=== PATIENT | female | born 1945 | race Caucasian/White ===

== ENCOUNTER 2017-12-30 20:21 | Inpatient (IN) | payer MEDICARE ==
[~2017-12-30] VITALS: Ht 162.6 cm; Wt 44.0 kg
[~2017-12-30 20:21] MED LIST: ALBUTEROL; ALBUTEROL25 GM INH; CALCIUM WITH VITAMIN D PO; FLEXERIL10 MG PO; GABAPENTIN100 MG PO; GERITOL; GERITOL TONIC; IRON PO; LEVAQUIN500 MG PO; MULTIVITAMINS1 EAC7 PO; NEXIUM; NEXIUM40 MG PO; NORCO 10-325 T1 EACH PO; ONE DAILY MULT1 EAC1 PO; PROAIR HFA INH8.5 GM INH; SYMBICORT; SYMBICORT 16010.2 GM INH; [UNRECOGNIZED DRUG - OTHER]
[2017-12-30] MEDS ORDERED: SODIUM CHLORIDE 0.9% 1000ML 1,000 ML IV ONE ×2 (20:45→21:15)
[2017-12-30] MEDS ORDERED: ACETAMINOPHEN 325 MG TAB PO ONE (20:45)
[2017-12-30] MEDS ORDERED: CEFTRIAXONE SOD 1 GM VIAL IV ONE (20:45)
[2017-12-30 21:02] LABS: BASOPHILS # (AUTO) 0.1 (0.0-0.1); BASOPHILS % 0.3 % (0.0-1.0); HEMATOCRIT 38.1 % (34.2-44.1); HEMOGLOBIN 11.4 g/dL (12.0-16.0); LYMPHOCYTES # (AUTO) 2.1 (1.0-3.2); LYMPHOCYTES % 9.7 % (18.0-39.1); MEAN CORPUSCULAR HEMOGLOBIN 25.3 pg (28-32); MEAN CORPUSCULAR HGB CONC 29.9 g/dL (31-35); MEAN CORPUSCULAR VOLUME 84.7 fL (81-99); MONOCYTES # (AUTO) 1.2 (0.2-0.8); MONOCYTES % 5.8 % (4.4-11.3); NEUTROPHILS # (AUTO) 17.5 (2.1-6.9); NEUTROPHILS % 83.2 % (38.7-80.0); PLATELET COUNT 350 x10e3/uL (140-360); RED CELL DISTRIBUTION WIDTH 18.9 % (11.7-14.4)
[2017-12-30 21:18] LABS: ALBUMIN 2.7 g/dL (3.5-5.0); ALBUMIN/GLOBULIN RATIO 0.6 (0.8-2.0); ANION GAP 15.1 mmol/L (8-16); CALCIUM 9.1 mg/dL (8.4-10.2); CREATININE, SERUM 2.05 mg/dL (0.57-1.11); POTASSIUM 4.1 mmol/L (3.5-5.1)
[2017-12-30 21:25] LABS: CREATINE KINASE MB 5.6 ng/mL (0-5.0)
[2017-12-30 21:32] LABS: BILIRUBIN,URINE 2+ (NEGATIVE); COLOR,URINE STRAW (YELLOW); KETONES,URINE NEGATIVE (NEGATIVE); LEUKOCYTE ESTERASE ,URINE TRACE (NEGATIVE); NITRITE,URINE NEGATIVE (NEGATIVE); PROTEIN,URINE DIPSTICK TRACE (NEGATIVE); URINE UROBILINOGEN 8 mg/dL (0.2 - 1)
[2017-12-30 21:33] LABS: CLARITY,URINE SL CLOUDY (CLEAR)
[2017-12-30 21:52] LABS: BACTERIA,URINE MODERATE /HPF; EPITHELIAL CELLS,URINE FEW /LPF; WBC,URINE (MAN) 0-5 /HPF (0-5)
--- NOTE | 2017-12-30 22:26 | Diagnostic Imaging Report ---
EXAMINATION: Head CT without contrast. HISTORY:Dizziness, weakness and confusion. COMPARISON:None. TECHNIQUE: Multidetector axial images were obtained from the foramen magnum to the vertex without contrast. The images were reconstructed using brain and bone algorithms. Thin section brain images were reformatted into coronal and sagittal planes. Intravenous contrast: None IMAGE QUALITY: Acceptable. FINDINGS: Skull/scalp: No abnormality. Parenchyma: Nonspecific few, scattered supratentorial white matter hypodensity are likely related to small vessel ischemic changes. No acute hemorrhage, mass or acute major vascular territorial infarct. Arteries: No density suggestive of thrombosis. Dural sinuses: No abnormal density suggestive of thrombosis. Ventricles: No hydrocephalus or displacement. Extra-axial spaces: No abnormal density. Brain volume: Normal for age. Craniocervical junction: No mass, Chiari malformation, or basilar invagination. Sella: No mass. Paranasal/mastoid sinuses: Mild mucosal thickening in right sphenoid sinus with an air-fluid level. IMPRESSION: No acute intracranial abnormality. Mild supratentorial white matter microvascular ischemic changes. Signed by: Dr. Violeta Washington M.D. on 12/30/2017 10:23 PM
--- NOTE | 2017-12-30 22:42 | Diagnostic Imaging Report ---
CHEST SINGLE (PORTABLE), 12/30/2017 8:34 PM Technique: CHEST SINGLE (PORTABLE) Comparison: 02/22/2016 Clinical history: \S\CONFUSION, GENERALIZED WEAKNESS \S\[id number] \S\2200 \S\Y Findings: See Impression Impression: 1. Stable moderately enlarged cardiac silhouette. 2. Emphysema and central vascular congestion. 3. Right basilar atelectasis or pneumonia with small right effusion. Recommend short-term follow-up radiographs. 4. Unchanged chronic left humeral fracture deformity. Signed by: Dr Safia Schultz MD on 12/30/2017 10:39 PM
[2017-12-30] MEDS ORDERED: IBANDRONATE SO150 MG PO (22:58)
[2017-12-30] MEDS ORDERED: BENADRYL25 M1 PO (22:58)
[2017-12-30] MEDS ORDERED: ANORO ELLIPTA INH (22:58)
[2017-12-30] MEDS ORDERED: PAROXETINE HCL20 MG PO (22:58)
[2017-12-30] MEDS ORDERED: PROAIR HFA INH8.5 GM INH (22:58)
[2017-12-30] MEDS ORDERED: VIBERZI PO (22:58)
[2017-12-30] MEDS ORDERED: ASPIR-LOW81 MG PO (22:58)
[2017-12-30] MEDS ORDERED: GABAPENTIN300 MG PO (22:58)
[2017-12-30] MEDS ORDERED: PROPRANOLOL HCL40 MG PO (22:58)
[2017-12-30] MEDS ORDERED: CEFTRIAXONE SOD 1 GM VIAL IV SCH (23:00)
[2017-12-30] MEDS ORDERED: AZITHROMYCIN 500MG/NS 250 ML 250 ML IV ONE (23:00)
[2017-12-30] MEDS ORDERED: ACETAMINOPHEN 325 MG TAB PO PRN (23:00)
[2017-12-30] MEDS ORDERED: AZITHROMYCIN 500MG/SOD CHL 0.9% 250ML BAG IV SCH (23:00)
--- OUTSIDE RECORDS SUMMARY | 2017-12-30 23:04 | XMS REPORT ---
[facility] Address Unknown Phone Unavailable Care Team Providers Care [employer] [facility] Name Role Phone SILVINA CANTU Unavailable Unavailable Problems This patient has no known problems. Allergies, Adverse Reactions, Alerts This patient has no known allergies or adverse reactions. Medications This patient has no known medications. Results Test Description Test Time Test Comments Text Results Atomic Results Result Comments CT BRAIN WO [place] [address] Patient Name: GABBY COTA MR #: [id number] : 1945 Age/Sex: 72/F Req #: [id number] Adm Physician: Ordered by: SILVINA CANTU MD Report #: [id number] Location: ER Room/Bed: ___ Procedure: [id number] CT/CT BRAIN WO Exam Date: 12/30/17 Exam Time: 2200 REPORT STATUS: Signed EXAMINATION: Head CT without contrast. HISTORY:Dizziness, weakness and confusion. COMPARISON:None. TECHNIQUE: Multidetector axial images were obtained from the foramen magnum to the vertex without contrast. The images were reconstructed using brain and bone algorithms. Thin section brain images were reformatted into coronal and sagittal planes. Intravenous contrast: None IMAGE QUALITY: Acceptable. FINDINGS: Skull/scalp: No abnormality. Parenchyma: Nonspecific few, scattered supratentorial white matter hypodensity are likely related to small vessel ischemic changes. No acute hemorrhage, mass or acute major vascular territorial infarct. Arteries: No density suggestive of thrombosis. Dural sinuses: No abnormal density suggestive of thrombosis. Ventricles: No hydrocephalus or displacement. Extra-axial spaces: No abnormal density. Brain volume: Normal for age. Craniocervical junction: No mass, Chiari malformation, or basilar invagination. Sella: No mass. Paranasal/ mastoid sinuses: Mild mucosal thickening in right sphenoid sinus with an air- fluid level. IMPRESSION: No acute intracranial abnormality. Mild supratentorial white matter microvascular ischemic changes. Signed by: Dr. Violeta Washington M.D. on 12/30/2017 10:23 PM Dictated By: VIOLETA WASHINGTON MD 22 Transcribed By: JEANNIE on 12/30/172222 COPY TO: SILVINA CANTU MD CHEST SINGLE (PORTABLE) [place] [address] Patient Name: GABBY COTA MR #: [id number] : 1945 Age/Sex: 72/F Req #: [id number] Adm Physician: Ordered by: SILVINA CANTU MD Report #: [id number] Location: ER Room/Bed: ___ Procedure: [id number] DX/CHEST SINGLE (PORTABLE) Exam Date: 12/30/17 Exam Time: 2199 REPORT STATUS: Signed CHEST SINGLE (PORTABLE), 12/30/2017 8:34 PM Technique: CHEST SINGLE (PORTABLE) Comparison: 02/22/2016 Clinical history: S CONFUSION, GENERALIZED WEAKNESS S [id number] S 0 S Y Findings: See Impression Impression: 1. Stable moderately enlarged cardiac silhouette. 2. Emphysema and central vascular congestion. 3. Right basilar atelectasis or pneumonia with small right effusion. Recommend short-term follow-up radiographs. 4. Unchanged chronic left humeral fracture deformity. Signed by: Dr Danielle Schultz MD on 12/30/2017 10:39 PM Dictated By: DANIELLE SCHULTZ MD 38 Transcribed By: JEANNIE on 12/30 COPY TO: SILVINA CANTU MD
[2017-12-30] MEDS: SODIUM CHLORIDE 0.9% 1000ML 1,000 ML IV SCH (23:09)
[2017-12-31] VITALS (60 sets, daily range): BP systolic 72–145; BP diastolic 37–95
[2017-12-31] MEDS ORDERED: SODIUM CHLORIDE 0.9% 1000ML 1,000 ML IV ONE (00:45)
[2017-12-31] MEDS: IPRATROPIUM BROMIDE 0.02% 2.5 ML NEB NEB SCH ×4 (00:55→19:11)
[2017-12-31] MEDS: ALBUTEROL SULF 0.083% NEB SOLN 3 ML NEB NEB SCH ×7 (00:55→23:17)
[2017-12-31 02:19] LABS: ANION GAP 11.7 mmol/L (8-16); CALCIUM 7.5 mg/dL (8.4-10.2); CREATININE, SERUM 1.57 mg/dL (0.57-1.11); POTASSIUM 3.7 mmol/L (3.5-5.1)
[2017-12-31] MEDS ORDERED: NOREPINEPHRINE BITARTRATE/ NS 250 ML ONE (02:30)
[2017-12-31] MEDS: NOREPINEPHRINE BITARTRATE/ NS 250 ML IV SCH (02:40)
[2017-12-31 06:46] LABS: BASOPHILS % 0.2 % (0.0-1.0); EOSINOPHILS % 0.1 % (0.0-6.0); HEMATOCRIT 32.7 % (34.2-44.1); HEMOGLOBIN 9.7 g/dL (12.0-16.0); LYMPHOCYTES # (AUTO) 2.3 (1.0-3.2); LYMPHOCYTES % 13.7 % (18.0-39.1); MEAN CORPUSCULAR HEMOGLOBIN 25.5 pg (28-32); MEAN CORPUSCULAR HGB CONC 29.7 g/dL (31-35); MEAN CORPUSCULAR VOLUME 85.8 fL (81-99); MONOCYTES # (AUTO) 0.9 (0.2-0.8); MONOCYTES % 5.2 % (4.4-11.3); NEUTROPHILS # (AUTO) 13.1 (2.1-6.9); NEUTROPHILS % 79.7 % (38.7-80.0); PLATELET COUNT 280 x10e3/uL (140-360); RED BLOOD COUNT 3.81 x10e6/uL (3.6-5.1); RED CELL DISTRIBUTION WIDTH 19.1 % (11.7-14.4)
[2017-12-31] MEDS: SODIUM CHLORIDE 0.9% 1000ML 1,000 ML IV SCH (06:50)
[2017-12-31 07:00] LABS: ALBUMIN 2.8 g/dL (3.5-5.0); ALBUMIN/GLOBULIN RATIO 0.9 (0.8-2.0); ANION GAP 13.6 mmol/L (8-16); CALCIUM 7.7 mg/dL (8.4-10.2); CREATININE, SERUM 1.55 mg/dL (0.57-1.11); POTASSIUM 3.6 mmol/L (3.5-5.1)
[2017-12-31 07:02] LABS: CREATINE KINASE MB 3.2 ng/mL (0-5.0)
[2017-12-31] MEDS: ASPIRIN 81 MG CHEW TAB PO SCH (09:00)
[2017-12-31] MEDS: HEPARIN SOD (PORCINE) 5,000 UNIT/ML VIAL SC SCH ×2 (09:00→21:58)
[2017-12-31] MEDS: PAROXETINE HCL 20 MG TAB PO SCH (09:00)
[2017-12-31] MEDS: FAMOTIDINE 20 MG/2 ML VIAL IV SCH ×2 (09:53→18:45)
[2017-12-31] MEDS ORDERED: METHYLPREDNISOLONE SOD SUCC 40 MG/ML VIAL IV ONE (12:00)
[2017-12-31] MEDS ORDERED: ALBUTEROL SULFATE HFA 8GM INHALATION AEROSOL INH PRN (12:00)
--- NOTE | 2017-12-31 13:11 | Consultation ---
DATE OF CONSULTATION: December 31, 2017 PULMONARY/CRITICAL CARE CONSULTATION REFERRING PHYSICIAN: Dr. Mayur Demarco HISTORY OF PRESENT ILLNESS: The patient is a 70-year-old woman. She has a prior history of COPD. She had transient respiratory failure in February 2016 after an open reduction and internal fixation of the hip and hemiarthroplasty. Since that time, she has been Anoro at home with an occasional rescue inhaler. She has not required any further hospitalization for her breathing or corticosteroids. She came to the emergency department last night because she had more difficulty speaking and had some disorientation. Upon arrival to the emergency department, she was found to have a low blood pressure and an elevated temperature of 101.2. She was told by the emergency department that she had pneumonia. Her chest x-ray shows a right basilar infiltrate and a small right effusion. PAST SURGICAL HISTORY 1. Status post left hip replacement. 2. Status post right femoral neck fracture that required open reduction and internal fixation. PAST MEDICAL HISTORY 1. Patient and her daughter specifically deny any cardiac disease. 2. History of osteoporosis. 3. COPD. 4. Gastroesophageal reflux. SOCIAL HISTORY: The patient was a prior smoker and quit but then started again about 6 weeks ago. She is now determined to quit once again. She is not using any alcohol. FAMILY HISTORY: Noncontributory. ALLERGIES: THERE ARE NO KNOWN DRUG ALLERGIES. REVIEW OF SYSTEMS: The patient did not report any fever at home, but apparently she had a temperature in the emergency department. She does not complain of headache. She does not have neck pain. She has no chest pain. She does have some congestion and cough. She is not having any abdominal pain. She has no nausea or vomiting. She does have some intermittent leg swelling and uses compression stockings. PHYSICAL EXAMINATION VITAL SIGNS: Blood pressure is 145/71, although it was 72/47 in the emergency department. The O2 saturation is 94% on 3 L. HEENT: No facial swelling or erythema. The nasal mucosa is normal. The oropharynx is normal. LYMPHATIC: No submandibular, cervical or supraclavicular adenopathy. CARDIAC: Regular rate and rhythm with normal S1 and S2. There are no murmurs or rubs. LUNGS: Auscultation of the lungs reveals rhonchorous breath sounds bilaterally. There is a prolonged expiratory phase. There is no wheezing. ABDOMEN: Soft and nontender. There is no rebound or guarding. EXTREMITIES: 1 to 2+ leg edema. LABORATORY DATA: White blood cell count is 16.4, and hemoglobin is 9.7. The platelet count is 280. The creatinine is 1.55 and has decreased from 2.05 with fluids. The carbon dioxide is 18. IMPRESSION 1. Community-acquired pneumonia. 2. Chronic obstructive pulmonary disease with acute exacerbation. 3. Transient hypotension. 4. Acute kidney injury. 5. Metabolic acidosis. PLAN 1. Begin appropriate antibiotics for her community-acquired pneumonia. 2. Continue IV fluids. 3. Await culture results. 4. Continue Anoro and rescue inhaler as needed. 5. Solu-Medrol times 1 dose. Job#: [id number]
[2017-12-31] MEDS: SODIUM CHLORIDE 0.45% 1,000 ML IV SCH ×2 (13:18→21:58)
[2017-12-31] MEDS ORDERED: METHYLPREDNISOLONE SOD SUCC 40 MG/ML VIAL ONE (13:21)
[2017-12-31] MEDS: GABAPENTIN 300 MG CAP PO SCH ×2 (14:00→21:58)
[2017-12-31 15:17] LABS: CREATINE KINASE MB 2.4 ng/mL (0-5.0)
[2017-12-31] MEDS: CEFTRIAXONE SOD 1 GM VIAL IV SCH (21:58)
[2017-12-31] MEDS: AZITHROMYCIN 500MG/NS 250 ML 250 ML IV SCH (21:58)
[2018-01-01] VITALS (81 sets, daily range): BP systolic 52–163; BP diastolic 25–117
[2018-01-01] MEDS: NOREPINEPHRINE BITARTRATE/ NS 250 ML IV SCH (02:30)
[2018-01-01] MEDS: ALBUTEROL SULF 0.083% NEB SOLN 3 ML NEB NEB SCH ×6 (03:05→23:02)
[2018-01-01] MEDS: IPRATROPIUM BROMIDE 0.02% 2.5 ML NEB NEB SCH ×4 (03:05→19:05)
[2018-01-01] MEDS: GABAPENTIN 300 MG CAP PO SCH ×3 (05:00→21:55)
[2018-01-01 05:35] LABS: BASOPHILS % 0.2 % (0.0-1.0); HEMATOCRIT 32.7 % (34.2-44.1); HEMOGLOBIN 9.8 g/dL (12.0-16.0); LYMPHOCYTES # (AUTO) 0.6 (1.0-3.2); LYMPHOCYTES % 4.6 % (18.0-39.1); MEAN CORPUSCULAR HEMOGLOBIN 25.4 pg (28-32); MEAN CORPUSCULAR VOLUME 84.7 fL (81-99); MONOCYTES # (AUTO) 0.1 (0.2-0.8); MONOCYTES % 0.8 % (4.4-11.3); NEUTROPHILS # (AUTO) 12.3 (2.1-6.9); NEUTROPHILS % 93.3 % (38.7-80.0); PLATELET COUNT 307 x10e3/uL (140-360); RED BLOOD COUNT 3.86 x10e6/uL (3.6-5.1); RED CELL DISTRIBUTION WIDTH 19.1 % (11.7-14.4)
[2018-01-01 05:57] LABS: ALBUMIN 2.4 g/dL (3.5-5.0); ALBUMIN/GLOBULIN RATIO 0.6 (0.8-2.0); ANION GAP 12.8 mmol/L (8-16); CALCIUM 8.2 mg/dL (8.4-10.2); CREATININE, SERUM 1.08 mg/dL (0.57-1.11); POTASSIUM 3.8 mmol/L (3.5-5.1)
--- NOTE | 2018-01-01 06:10 | Diagnostic Imaging Report ---
CHEST SINGLE (PORTABLE), 01/01/2018 6:30 AM Technique: CHEST SINGLE (PORTABLE) Comparison: 12/30/2017 Clinical history: Pneumonia Findings: See Impression Impression: 1. Stable moderately enlarged cardiac silhouette. 2. Emphysema and central vascular congestion. 3. Increased small right pleural effusion with associated atelectasis/pneumonia. Mild left basilar atelectasis, aspiration or infection and pleural effusion. 4. Unchanged chronic left humeral fracture deformity/nonunion. Signed by: Dr Safia Schultz MD on 01/01/2018 6:07 AM
[2018-01-01] MEDS: SODIUM CHLORIDE 0.45% 1,000 ML IV SCH ×2 (08:00→16:00)
[2018-01-01] MEDS: CEFTRIAXONE SOD 1 GM VIAL IV SCH ×2 (09:00→20:35)
[2018-01-01] MEDS: HEPARIN SOD (PORCINE) 5,000 UNIT/ML VIAL SC SCH ×2 (09:00→20:35)
[2018-01-01] MEDS: FAMOTIDINE 20 MG/2 ML VIAL IV SCH ×2 (09:00→17:00)
[2018-01-01] MEDS: ASPIRIN 81 MG CHEW TAB PO SCH (09:00)
[2018-01-01] MEDS: PAROXETINE HCL 20 MG TAB PO SCH (09:00)
[2018-01-01] MEDS: ANORO ELLIPTA INH SCH (09:00)
[2018-01-01] MEDS ORDERED: ALBUTEROL SULFATE HFA 8GM INHALATION AEROSOL INH PRN (10:30)
[2018-01-01] MEDS ORDERED: SODIUM CHLORIDE 0.45% 1,000 ML ONE (15:28)
[2018-01-01] MEDS: AZITHROMYCIN 500MG/NS 250 ML 250 ML IV SCH (20:35)
[2018-01-02] VITALS (39 sets, daily range): BP systolic 102–163; BP diastolic 53–102
[2018-01-02] MEDS: IPRATROPIUM BROMIDE 0.02% 2.5 ML NEB NEB SCH ×6 (02:57→22:50)
[2018-01-02] MEDS: ALBUTEROL SULF 0.083% NEB SOLN 3 ML NEB NEB SCH ×6 (02:59→22:50)
[2018-01-02] MEDS: GABAPENTIN 300 MG CAP PO SCH (05:35)
[2018-01-02 06:29] LABS: BASOPHILS % 0.1 % (0.0-1.0); EOSINOPHILS % 0.1 % (0.0-6.0); HEMATOCRIT 31.8 % (34.2-44.1); HEMOGLOBIN 9.7 g/dL (12.0-16.0); LYMPHOCYTES # (AUTO) 1.5 (1.0-3.2); LYMPHOCYTES % 10.5 % (18.0-39.1); MEAN CORPUSCULAR HEMOGLOBIN 25.5 pg (28-32); MEAN CORPUSCULAR HGB CONC 30.5 g/dL (31-35); MEAN CORPUSCULAR VOLUME 83.5 fL (81-99); MONOCYTES # (AUTO) 0.6 (0.2-0.8); MONOCYTES % 4.3 % (4.4-11.3); NEUTROPHILS # (AUTO) 11.7 (2.1-6.9); NEUTROPHILS % 84.1 % (38.7-80.0); PLATELET COUNT 330 x10e3/uL (140-360); RED BLOOD COUNT 3.81 x10e6/uL (3.6-5.1)
[2018-01-02 06:48] LABS: ALANINE AMINOTRANSFERASE 10 IU/L (0-55); ALBUMIN 2.4 g/dL (3.5-5.0); ALBUMIN/GLOBULIN RATIO 0.6 (0.8-2.0); ALKALINE PHOSPHATASE 93 IU/L (40-150); ANION GAP 11.4 mmol/L (8-16); BLOOD UREA NITROGEN 25 mg/dL (7-26); BUN/CREATININE RATIO 27 (6-25); CALCIUM 8.6 mg/dL (8.4-10.2); CARBON DIOXIDE 24 mmol/L (22-29); CHLORIDE 106 mmol/L (98-107); CREATININE, SERUM 0.94 mg/dL (0.57-1.11); EST GLOMERULAR FILTRATION RATE 59 ML/MIN (60-); GLUCOSE 94 mg/dL (74-118); POTASSIUM 3.4 mmol/L (3.5-5.1); SODIUM 138 mmol/L (136-145)
[2018-01-02] MEDS: PAROXETINE HCL 20 MG TAB PO SCH (09:00)
[2018-01-02] MEDS: ASPIRIN 81 MG CHEW TAB PO SCH (09:00)
[2018-01-02] MEDS: ANORO ELLIPTA INH SCH (09:00)
[2018-01-02] MEDS: CEFTRIAXONE SOD 1 GM VIAL IV SCH ×2 (09:00→20:58)
[2018-01-02] MEDS: FAMOTIDINE 20 MG/2 ML VIAL IV SCH (09:00)
[2018-01-02] MEDS: HEPARIN SOD (PORCINE) 5,000 UNIT/ML VIAL SC SCH ×2 (09:00→20:34)
[2018-01-02] MEDS ORDERED: POTASSIUM CHLORIDE 20 MEQ TAB CR PO ONE (12:30)
[2018-01-02] MEDS: GABAPENTIN 100 MG CAP PO SCH ×2 (13:52→20:58)
[2018-01-02] MEDS ORDERED: GABAPENTIN 300 MG CAP PO SCH (14:00)
[2018-01-02] MEDS: FAMOTIDINE 20 MG TAB PO SCH (16:30)
[2018-01-02] MEDS ORDERED: METOPROLOL TARTRATE INJ 1 MG/ML VIAL ONE (18:28)
[2018-01-02] MEDS: METOPROLOL TARTRATE INJ 1 MG/ML VIAL IV PRN (18:32)
[2018-01-02] MEDS ORDERED: SODIUM CHLORIDE 0.9% 250ML 250 ML ONE (20:37)
[2018-01-02] MEDS: AZITHROMYCIN 500MG/NS 250 ML 250 ML IV SCH (20:58)
[2018-01-03] VITALS (8 sets, daily range): BP systolic 108–158; BP diastolic 54–88
[2018-01-03] MEDS: ALBUTEROL SULF 0.083% NEB SOLN 3 ML NEB NEB SCH ×6 (02:05→22:50)
--- NOTE | 2018-01-03 05:44 | Progress Note ---
DATE: January 03, 2018 TIME: 5:19 a.m. OVERNIGHT: Feeling a little better. REVIEW OF SYSTEMS: Denies any dizziness or chest pain. PHYSICAL EXAMINATION VITAL SIGNS: Reviewed. GENERAL: A tired-appearing woman resting in bed. HEENT: Anicteric. Pupils respond to light. No oral lesions. CARDIOVASCULAR: Normal S1 and S2. LUNGS: She has mildly coarse, but better aeration. ABDOMEN: Soft, nontender and nondistended. EXTREMITIES: No edema or calf tenderness. NEUROLOGICAL: She is alert and oriented times 3. She moves all extremities. SKIN: Dry. PSYCHIATRIC: Flat affect. LABS: Reviewed. MEDICATIONS: Reviewed. ASSESSMENT: A 72-year-old woman with: 1. Acute respiratory failure. 2. Septic shock. 3. Right lung pneumonia. 4. Acute kidney injury. 5. Urinary tract infection. 6. Somnolence secondary to medications. 7. Normocytic anemia. 8. Metabolic acidosis. 9. Underweight state: Body mass index 16.6. PLAN 1. Continue IV ceftriaxone and azithromycin. 2. Continue oxygen support. The patient is on 3 L nasal cannula. 3. All cultures remain negative. 4. Initiate physical therapy this morning. 5. The patient is more alert after . Reduce down Paxil and discontinue. 6. Acute kidney injury continues to resolve. 7. Metabolic acidosis continues to resolve. 8. Will obtain labs this morning. 9. Discharge planning. Job#: [id number] [place]
--- NOTE | 2018-01-03 05:48 | Progress Note ---
DATE: January 01, 2018 TIME: 7 a.m. OVERNIGHT: No events. REVIEW OF SYSTEMS: Denies any dizziness. PHYSICAL EXAM VITAL SIGNS: Reviewed. GENERAL: A tired-appearing man resting in bed. HEENT: Anicteric. CARDIOVASCULAR: Normal S1/S2. Without murmurs. LUNGS: Reduced breath sounds throughout. Mildly coarse. ABDOMEN: Soft, nontender, nondistended. EXTREMITIES: No edema or calf tenderness. NEUROLOGIC: Alert and appropriate. Moves all extremities. SKIN: Dry. PSYCHIATRIC: Flat affect. LABS: Reviewed. MEDICATIONS: Reviewed. ASSESSMENT AND PLAN: This is a 72-year-old woman. 1. Acute respiratory failure. Patient required bilevel positive airway pressure support. 2. Right lung pneumonia. Continue antibiotics. 3. Chronic obstructive pulmonary disease. Acute exacerbation of chronic obstructive pulmonary disease. Continue pulmonary support. 4. Acute kidney injury, proven. Continue follow. 5. Urinary tract infection. Continue antibiotics. 6. Septic shock. 7. Continue antibiotics and follow up cultures. 8. Normocytic anemia. Continue follow. 9. Prophylaxis. Will continue heparin and Pepcid. 10. CRITICAL CARE TIME: More than 35 minutes. Job#: [id number]
--- NOTE | 2018-01-03 05:54 | Progress Note ---
DATE: January 02, 2018 TIME: 7:30 a.m. OVERNIGHT: Feeling a little better. REVIEW OF SYSTEMS: Denies any dizziness. PHYSICAL EXAMINATION VITAL SIGNS: Reviewed. GENERAL: A tired-appearing woman, resting in bed. HEENT: Anicteric. CARDIOVASCULAR: Normal S1/S2. LUNGS: Mildly coarse breath sounds. ABDOMEN: Soft, nontender, nondistended. EXTREMITIES: No edema or calf tenderness. NEUROLOGIC: Alert and oriented times 2. Somewhat sleepy. SKIN: Dry. PSYCHIATRIC: Flat affect. LABS: Reviewed. MEDICATIONS: Reviewed. ASSESSMENT: This is a 72-year-old woman with 1. Acute respiratory failure. 2. Acute exacerbation of chronic obstructive pulmonary disease. 3. Acute kidney injury. 4. Right lung pneumonia. 5. Normocytic anemia. 6. Septic shock. PLAN 1. Continue O2 support. 2. Continue antibiotics. 3. All cultures remain negative. 4. Septic shock, resolved. 5. Acute kidney injury improving. 6. Patient is somnolent. Will reduce gabapentin and discontinue Paxil. 7. Continue Pepcid and heparin. 8. Disposition. Discharge patient out the ICU if neurologic status improves today. CRITICAL CARE TIME: More than 35 minutes. Job#: [id number] CQ
[2018-01-03] MEDS: GABAPENTIN 100 MG CAP PO SCH ×3 (06:02→21:21)
[2018-01-03 06:30] LABS: BASOPHILS % 0.2 % (0.0-1.0); EOSINOPHILS # (AUTO) 0.1 (0.0-0.4); EOSINOPHILS % 0.8 % (0.0-6.0); HEMATOCRIT 32.5 % (34.2-44.1); HEMOGLOBIN 9.7 g/dL (12.0-16.0); LYMPHOCYTES # (AUTO) 1.3 (1.0-3.2); LYMPHOCYTES % 13.8 % (18.0-39.1); MEAN CORPUSCULAR HEMOGLOBIN 25.3 pg (28-32); MEAN CORPUSCULAR HGB CONC 29.8 g/dL (31-35); MEAN CORPUSCULAR VOLUME 84.9 fL (81-99); MONOCYTES # (AUTO) 0.6 (0.2-0.8); MONOCYTES % 6.7 % (4.4-11.3); NEUTROPHILS # (AUTO) 7.2 (2.1-6.9); NEUTROPHILS % 77.6 % (38.7-80.0); PLATELET COUNT 333 x10e3/uL (140-360); RED BLOOD COUNT 3.83 x10e6/uL (3.6-5.1); RED CELL DISTRIBUTION WIDTH 19.1 % (11.7-14.4)
[2018-01-03 06:53] LABS: ANION GAP 11.9 mmol/L (8-16); BLOOD UREA NITROGEN 18 mg/dL (7-26); BUN/CREATININE RATIO 23 (6-25); CALCIUM 8.9 mg/dL (8.4-10.2); CARBON DIOXIDE 25 mmol/L (22-29); CHLORIDE 106 mmol/L (98-107); CREATININE, SERUM 0.79 mg/dL (0.57-1.11); EST GLOMERULAR FILTRATION RATE > 60 ML/MIN (60-); GLUCOSE 100 mg/dL (74-118); POTASSIUM 3.9 mmol/L (3.5-5.1); SODIUM 139 mmol/L (136-145)
[2018-01-03] MEDS: IPRATROPIUM BROMIDE 0.02% 2.5 ML NEB NEB SCH ×2 (07:00→12:06)
[2018-01-03 07:40] LABS: MAGNESIUM 1.3 MG/DL (1.3-2.1)
[2018-01-03] MEDS: ANORO ELLIPTA INH SCH (07:44)
[2018-01-03] MEDS: ASPIRIN 81 MG CHEW TAB PO SCH (08:04)
[2018-01-03] MEDS: FAMOTIDINE 20 MG TAB PO SCH ×2 (08:04→16:30)
[2018-01-03] MEDS: CEFTRIAXONE SOD 1 GM VIAL IV SCH ×2 (08:04→20:41)
[2018-01-03] MEDS: HEPARIN SOD (PORCINE) 5,000 UNIT/ML VIAL SC SCH ×2 (08:08→21:21)
[2018-01-03 12:32] LABS: ABG HCO3 27 mmol/L (23-28); ABG PCO2 48 mmHg (41-51); ABG PH 7.36 (7.31-7.41); ABG PO2 59 mmHg (80-105)
[2018-01-03] MEDS: AZITHROMYCIN 500MG/NS 250 ML 250 ML IV SCH (20:41)
[2018-01-03] MEDS ORDERED: QUETIAPINE FUMARATE 25 MG TAB PO SCH (21:00)
[2018-01-04] VITALS (11 sets, daily range): BP systolic 75–174; BP diastolic 44–95
[2018-01-04] MEDS: IPRATROPIUM BROMIDE 0.02% 2.5 ML NEB NEB SCH ×4 (03:42→19:30)
[2018-01-04] MEDS: ALBUTEROL SULF 0.083% NEB SOLN 3 ML NEB NEB SCH ×4 (03:42→19:30)
[2018-01-04] MEDS: GABAPENTIN 100 MG CAP PO SCH ×2 (05:05→15:26)
[2018-01-04] MEDS: ANORO ELLIPTA INH SCH (07:32)
[2018-01-04] MEDS: ASPIRIN 81 MG CHEW TAB PO SCH (08:09)
[2018-01-04] MEDS: FAMOTIDINE 20 MG TAB PO SCH ×2 (08:09→15:26)
[2018-01-04] MEDS: CEFTRIAXONE SOD 1 GM VIAL IV SCH (08:09)
[2018-01-04] MEDS: HEPARIN SOD (PORCINE) 5,000 UNIT/ML VIAL SC SCH (08:12)
[2018-01-04] MEDS: METOPROLOL TARTRATE INJ 1 MG/ML VIAL IV PRN ×2 (08:47→19:50)
--- NOTE | 2018-01-04 15:37 | Progress Note ---
DATE: PULMONARY/CRITICAL CARE PROGRESS NOTE The patient has had her Luna removed. She was assessed by physical therapy. She is weak at this time and having difficulty with her own activities of daily living. She has difficulty going to the bathroom. She has less cough and less congestion. She still has some dyspnea on exertion. PHYSICAL EXAMINATION VITAL SIGNS: Patient is afebrile. The vital signs are stable. HEENT: No facial swelling or erythema. The oropharynx is normal. LYMPHATIC: No submandibular, cervical or supraclavicular adenopathy. CARDIAC: Regular rate and rhythm with normal S1 and S2. There are no murmurs or rubs. LUNGS: Auscultation of the lungs reveals crackles and rhonchi at both bases. ABDOMEN: Soft and nontender. There is no rebound or guarding. EXTREMITIES: No leg edema or calf tenderness. There is no cyanosis or clubbing. SKIN: No rashes. NEUROLOGIC: No focal abnormalities. IMPRESSION 1. Resolving community-acquired pneumonia. 2. Chronic obstructive pulmonary disease. 3. Moderate protein-calorie malnutrition. 4. Deconditioning. PLAN 1. The patient can be switched to p.o. antibiotics. She should continue another week of p.o. antibiotics for the community-acquired pneumonia. 2. Continue bronchodilators. 3. Physical therapy. 4. Nutritional supplementation. Job#: [id number]
[2018-01-04] MEDS ORDERED: AZITHROMYCIN 250 MG TAB PO SCH (16:00)
[2018-01-04] MEDS ORDERED: CEFDINIR 300 MG CAP PO SCH (21:00)
--- NOTE | 2018-01-05 09:11 | Discharge Summary ---
PRINCIPAL DIAGNOSES 1. Acute respiratory failure. 2. Acute exacerbation of chronic obstructive pulmonary disease. 3. Acute kidney injury. 4. Right lung pneumonia. 5. Normocytic anemia. 6. Septic shock. SECONDARY DIAGNOSIS: Chronic obstructive pulmonary disease. CHIEF COMPLAINT: Shortness of breath. HISTORY OF PRESENT ILLNESS AND HOSPITAL COURSE: This is a 72-year-old woman who developed respiratory failure. She had acute exacerbation of COPD and acute kidney injury. She also had right lung pneumonia, all treated with antibiotics, oxygen support and BiPAP support. She had septic shock, which has been improving. She has been receiving physical therapy. She has periods of delirium, but she is improving and currently appropriate for discharge with followup. DISCHARGE MEDICATIONS: Per electronic medical record. FOLLOWUP: With primary care doctor in 1 week. CONDITION ON DISCHARGE: Stable and improving. DISCHARGE LOCATION: Skilled facility. REA HERNANDEZ MD Job#: [id number]
== END 2018-01-04 20:30 | DRG 871 ==
LOC: ER 20:21 → ERHOLD 23:00 → IMCU 23:36 → ERHOLD 23:36 → ICU 12-31 01:38 → IMCU 01-02 17:46
PROVIDERS: ADMIT Internal Medicine; ATTEND Internal Medicine
DX: A41.9 Sepsis, unspecified organism (principal); J96.00 Acute respiratory failure, unspecified whether with hypoxia or hypercapnia; R65.21 Severe sepsis with septic shock; E44.0 Moderate protein-calorie malnutrition; J18.9 Pneumonia, unspecified organism; E87.2 Acidosis; N39.0 Urinary tract infection, site not specified; J44.1 Chronic obstructive pulmonary disease with (acute) exacerbation; J44.0 Chronic obstructive pulmonary disease with (acute) lower respiratory infection; E86.0 Dehydration
CPT/HCPCS: 36415; 36600; 51700; 70450; 71045; 80048; 80053; 81001; 82550; 82553; 82805; 83605; 83735; 84484; 85025; 87040; 87086; 87400; 87449; 87899; 93005; 94640; 96360; 96361; 96366; 96374; 97139; 99284; J0456; J0696; J1644; J2920; J7030; J7050

== ENCOUNTER 2018-07-17 17:04 | Inpatient (IN) | payer MEDICARE ==
[~2018-07-17] VITALS: Ht 162.6 cm; Wt 49.9 kg
[~2018-07-17 17:04] MED LIST changes: +ANORO ELLIPTA INH; +ASPIR-LOW81 MG PO; +BENADRYL25 M1 PO; +GABAPENTIN300 MG PO; +IBANDRONATE SO150 MG PO; +PAROXETINE HCL20 MG PO; +PROPRANOLOL HCL40 MG PO; +VIBERZI PO
[2018-07-17] MEDS ORDERED: SODIUM CHLORIDE 0.9% 1000ML 1,000 ML IV STA (17:28)
[2018-07-17 18:23] LABS: BASOPHILS # (AUTO) 0.1 (0.0-0.1); BASOPHILS % 0.5 % (0.0-1.0); EOSINOPHILS # (AUTO) 0.2 (0.0-0.4); EOSINOPHILS % 2.1 % (0.0-6.0); HEMATOCRIT 34.6 % (34.2-44.1); LYMPHOCYTES % 19.7 % (18.0-39.1); MEAN CORPUSCULAR HEMOGLOBIN 28.7 pg (28-32); MEAN CORPUSCULAR HGB CONC 28.9 g/dL (31-35); MEAN CORPUSCULAR VOLUME 99.4 fL (81-99); MONOCYTES # (AUTO) 0.8 (0.2-0.8); NEUTROPHILS # (AUTO) 6.9 (2.1-6.9); NEUTROPHILS % 68.1 % (38.7-80.0); PLATELET COUNT 208 x10e3/uL (140-360); RED BLOOD COUNT 3.48 x10e6/uL (3.6-5.1); RED CELL DISTRIBUTION WIDTH 15.3 % (11.7-14.4)
[2018-07-17 18:33] LABS: INR 1.14; PROTHROMBIN TIME 13.7 seconds (11.9-14.5)
[2018-07-17 18:34] LABS: PARTIAL THROMBOPLASTIN TIME 31.2 seconds (23.8-35.5)
[2018-07-17 18:58] LABS: ALBUMIN/GLOBULIN RATIO 0.9 (0.8-2.0); ANION GAP 20.3 mmol/L (8-16); CALCIUM 7.7 mg/dL (8.4-10.2); CREATININE, SERUM 4.56 mg/dL (0.57-1.11); POTASSIUM 5.3 mmol/L (3.5-5.1)
--- NOTE | 2018-07-17 19:23 | Diagnostic Imaging Report ---
EXAMINATION: Head CT HISTORY: Disoriented, weakness COMPARISON: Head CT on 12/30/2017 TECHNIQUE: Multidetector axial images were obtained without contrast from the foramen magnum to the vertex . The images were reconstructed using brain and bone algorithms. Thin section brain images were reformatted into coronal and sagittal planes. Image quality: Motion/streaking artifact limits the evaluation of the skull base and posterior cranial fossa. Dose modulation, iterative reconstruction, and/or weight based adjustment of the mA/kV was utilized to reduce the radiation dose to as low as reasonably achievable. FINDINGS: Parenchyma: 1. Unchanged nonspecific few, scattered supratentorial white matter hypodensity are likely related to small vessel ischemic changes. 2. No mass or hemorrhage. No CT evidence of acute territorial vascular insult. Extra-axial spaces:No abnormal density. No extra-axial fluid collections Brain volume: Normal for age. Ventricles: No hydrocephalus or displacement. Arteries: No density suggestive of thrombus. Dural sinuses: No abnormal density. Extra-axial spaces: No abnormal density. Foramen magnum: No mass, Chiari malformation, or basilar invagination. Sella: No obvious mass. Paranasal/mastoid sinuses: Imaged portions unremarkable. Skull/Scalp: No lytic or blastic lesions. No fractures. IMPRESSION: 1. No acute intracranial abnormalities, unchanged from head CT on 12/30/2017. 2. Mild chronic microvascular ischemic changes. Signed by: Dr. Tamera Waller M.D. on 07/17/2018 7:20 PM
[2018-07-17 19:35] LABS: B-TYPE NATRIURETIC PEPTIDE2 1128.7 pg/mL (0-100)
--- NOTE | 2018-07-17 19:41 | Diagnostic Imaging Report ---
EXAM: CHEST SINGLE (PORTABLE), AP 1 view INDICATION: Disoriented, weakness COMPARISON: AP view of the chest January 01, 2018 FINDINGS: LINES/TUBES: None LUNGS: Emphysematous changes with scattered areas of scarring and subsegmental atelectasis. Likely mild interstitial edema. PLEURA: No effusions or pneumothorax. Interval resolution of prior pleural effusions. HEART AND MEDIASTINUM: Mild enlargement of the heart and central pulmonary vessels, stable from prior exam. BONES AND SOFT TISSUES: No acute findings. Chronic osteolysis of the left proximal humerus. IMPRESSION: Mild cardiomegaly and interstitial edema. Interval resolution of bilateral pleural effusions. Signed by: Dr. Anisa Moreira M.D. on 07/17/2018 7:37 PM
[2018-07-17] MEDS ORDERED: FUROSEMIDE INJ 10 MG/ML 4 ML VIAL IV ONE (20:00)
[2018-07-17] MEDS ORDERED: SODIUM BICARBONATE 8.4% INJ 50 ML SYR IV STA (20:00)
[2018-07-17] MEDS ORDERED: SODIUM CHLORIDE FLUSH 10 ML SYR INJ PRN (20:15)
[2018-07-17 21:45] LABS: AMPHETAMINES SCREEN,URINE NEGATIVE (NEGATIVE); BENZODIAZEPINES SCREEN,URINE NEGATIVE (NEGATIVE); PHENCYCLIDINE SCREEN,URINE NEGATIVE (NEGATIVE)
[2018-07-17 21:46] LABS: BACTERIA,URINE FEW /HPF; BILIRUBIN,URINE NEGATIVE (NEGATIVE); CLARITY,URINE CLOUDY (CLEAR); COLOR,URINE YELLOW (YELLOW); KETONES,URINE NEGATIVE (NEGATIVE); LEUKOCYTE ESTERASE ,URINE NEGATIVE (NEGATIVE); NITRITE,URINE NEGATIVE (NEGATIVE); PROTEIN,URINE DIPSTICK 1+ (NEGATIVE); RBC,URINE 0-5 /HPF (0-5); URINE UROBILINOGEN 0.2 mg/dL (0.2 - 1); WBC,URINE (MAN) 0-5 /HPF (0-5)
[2018-07-17 21:47] LABS: AMORPHOUS SEDIMENT,URINE MODERATE (FEW); EPITHELIAL CELLS,URINE FEW /LPF
[2018-07-17 23:21] VITALS: BP 140/94
[2018-07-17 23:29] VITALS: BP 140/94
[2018-07-18] VITALS (7 sets, daily range): BP systolic 92–140; BP diastolic 48–94
[2018-07-18 05:39] LABS: CREATINE KINASE MB 3.9 ng/mL (0-5.0)
[2018-07-18] MEDS ORDERED: FUROSEMIDE INJ 10 MG/ML 4 ML VIAL IV SCH (06:00)
[2018-07-18 06:24] LABS: BASOPHILS % 0.5 % (0.0-1.0); EOSINOPHILS # (AUTO) 0.1 (0.0-0.4); EOSINOPHILS % 1.4 % (0.0-6.0); HEMATOCRIT 29.2 % (34.2-44.1); HEMOGLOBIN 8.7 g/dL (12.0-16.0); LYMPHOCYTES # (AUTO) 1.7 (1.0-3.2); LYMPHOCYTES % 20.2 % (18.0-39.1); MEAN CORPUSCULAR HEMOGLOBIN 28.7 pg (28-32); MEAN CORPUSCULAR HGB CONC 29.8 g/dL (31-35); MEAN CORPUSCULAR VOLUME 96.4 fL (81-99); MONOCYTES # (AUTO) 0.7 (0.2-0.8); MONOCYTES % 7.9 % (4.4-11.3); NEUTROPHILS # (AUTO) 5.7 (2.1-6.9); NEUTROPHILS % 68.4 % (38.7-80.0); PLATELET COUNT 177 x10e3/uL (140-360); RED BLOOD COUNT 3.03 x10e6/uL (3.6-5.1); RED CELL DISTRIBUTION WIDTH 15.3 % (11.7-14.4)
[2018-07-18 06:57] LABS: ALBUMIN 2.5 g/dL (3.5-5.0); ALBUMIN/GLOBULIN RATIO 0.9 (0.8-2.0); ANION GAP 23.7 mmol/L (8-16); CREATININE, SERUM 4.82 mg/dL (0.57-1.11); POTASSIUM 4.7 mmol/L (3.5-5.1)
[2018-07-18 06:59] LABS: CALCIUM 6.9 mg/dL (8.4-10.2)
[2018-07-18] MEDS ORDERED: ALBUTEROL SULFATE HFA 8GM INHALATION AEROSOL INH PRN (07:30)
--- NOTE | 2018-07-18 08:00 | Diagnostic Imaging Report ---
EXAM: CHEST SINGLE (PORTABLE), AP 1 view INDICATION: Pulmonary edema COMPARISON: AP view of the chest July 17, 2018 FINDINGS: LINES/TUBES: None LUNGS: Interstitial edema and bibasilar atelectasis. PLEURA: No effusions or pneumothorax. HEART AND MEDIASTINUM: Stable cardiomegaly BONES AND SOFT TISSUES: No acute findings. Chronic deformity of the left humeral neck. IMPRESSION: No interval change. Signed by: Dr. Anisa Moreira M.D. on 07/18/2018 6:48 AM
[2018-07-18] MEDS: MIDODRINE HCL 5 MG TABLET PO SCH ×3 (08:15→17:00)
[2018-07-18] MEDS: SODIUM BICARBONATE 650 MG TAB PO SCH ×2 (08:15→17:00)
--- NOTE | 2018-07-18 08:17 | History and Physical ---
PRIMARY CARE PHYSICIAN: Dr. Mayur Demarco. CHIEF COMPLAINT: Confusion and reduced urination. HISTORY OF PRESENT ILLNESS: This is a 72-year-old woman with a history of acute kidney injury now developing confusion and reduced urine output, brought to the ER, as well found to have acute renal failure and hyperkalemia. She is also found to have pulmonary edema. She is admitted for further evaluation and management. PAST MEDICAL HISTORY: Acute respiratory failure, COPD, acute kidney injury, right lung pneumonia, normocytic anemia, septic shock, urinary tract infection, anemia, right hip fracture status post repair, osteoporosis, GERD. PAST SURGICAL HISTORY: Right hip fracture repair. ALLERGIES: PER ELECTRONIC MEDICAL RECORD. FAMILY AND SOCIAL HISTORY: No alcohol, illicit or cigarettes. MEDICATIONS: Per electronic medical record. REVIEW OF SYSTEMS: Unreliable at this time. PHYSICAL EXAMINATION VITAL SIGNS: Reviewed. GENERAL: A tired appearing woman, resting in bed. HEENT: Anicteric. CARDIOVASCULAR: Normal S1, S2. LUNGS: She has reduced breath sounds throughout. Muffled breath sounds. No wheezing. ABDOMEN: Soft, nontender, nondistended. EXTREMITIES: No edema or calf tenderness. NEUROLOGICAL: Awake but confused. Moves all extremities. SKIN: Dry. PSYCHIATRIC: Flat affect. LABS: Reviewed. MEDICATIONS: Reviewed. ASSESSMENT: This is a 72-year-old woman with 1. Acute kidney injury. 2. Hyperkalemia. 3. Hypocalcemia. 4. Normocytic anemia. 5. Acute exacerbation of congestive heart failure with pulmonary edema. 6. Pulmonary edema. 7. Chronic obstructive pulmonary disease. 8. Acute metabolic encephalopathy. PLAN 1. The patient received IV Lasix overnight. Renal function has worsened. Patient is also hypotensive and tachycardiac. The patient may need dialysis. We will consult nephrology. Continue bicarb. We will hold Lasix dose this morning. We will continue Luna. 2. Obtain 2D echocardiogram. 3. Start midodrine. 4. Obtain renal ultrasound. 5. We will not give fluids at this time as the patient does have interstitial edema and resolving bilateral pleural effusion. B-type natriuretic peptide is elevated above 1000. 6. Will discuss with nephrology for plan of care and will consult cardiology for assistance in management. 1. Prophylaxis: Use SCD. 2. Disposition: Monitor closely. Followup labs and reobtain basic metabolic panel later today and will discuss with consultants. Job#: [id number] GE
[2018-07-18] MEDS: ONDANSETRON HCL INJ 2 MG/ML VIAL IV PRN (08:25)
[2018-07-18] MEDS ORDERED: ASPIRIN 81 MG CHEW TAB PO SCH (09:00)
[2018-07-18] MEDS ORDERED: SEROQUEL25 MG PO (10:51)
[2018-07-18] MEDS: ALBUTEROL/IPRATROPIUM 3 ML NEB NEB SCH ×4 (11:15→23:45)
[2018-07-18] MEDS: GABAPENTIN 300 MG CAP PO SCH ×2 (13:05→21:48)
[2018-07-18 14:22] LABS: CREATINE KINASE MB 3.6 ng/mL (0-5.0)
[2018-07-18 14:41] LABS: ANION GAP 25.1 mmol/L (8-16); CREATININE, SERUM 4.98 mg/dL (0.57-1.11); POTASSIUM 5.1 mmol/L (3.5-5.1)
[2018-07-18] MEDS ORDERED: SODIUM BICARBONATE INJ 150 ML in DEXTROSE 5% 1,000 ML IV SCH (17:00)
--- NOTE | 2018-07-18 17:26 | Consultation ---
DATE OF CONSULTATION: July 18, 2018 CARDIOLOGY CONSULTATION REASON FOR CONSULTATION: Congestive heart failure. CHIEF COMPLAINT: I just don't feel very well. HISTORY OF PRESENT ILLNESS: A 72-year-old woman with history of chronic kidney disease presents with several days of confusion, reduced urine output and generalized feeling of unwell, as well as abdominal pain and abdominal distention. She denies any chest pain or shortness of breath or orthopnea or PND. Denies any previous history of heart problems. Denies any syncope. PAST MEDICAL HISTORY: 1. Shortness of breath. 2. COPD. 3. History of acute kidney injury. 4. History of pneumonia. 5. Anemia. 6. Right hip fracture status post repair. 7. Osteoporosis. 8. GERD. PAST SURGICAL HISTORY: Right hip fracture repair. FAMILY HISTORY: No family history of early CAD or sudden cardiac . SOCIAL HISTORY: No alcohol, smoking or illicit drug use. REVIEW OF SYSTEMS: Unable to obtain due to altered mental status. PHYSICAL EXAMINATION: VITALS: Reviewed. Temperature 99.2, pulse 105, respiratory rate 18, blood pressure 103/63, satting 96% on 2 liters nasal cannula. GENERAL: Elderly ill-appearing white female in no acute distress. CARDIOVASCULAR: Regular rate and rhythm. No murmurs, rubs or gallops. Palpable carotid pulses. Palpable radial pulses. Palpable pedal pulses. Bilateral lower extremity varicosities. No significant lower extremity edema. RESPIRATORY: Bibasilar crackles with decreased breath sounds at the bases. ABDOMEN: Soft, nontender, mildly distended. Suspect ascites by percussion. NEURO AND PSYCH: Patient is alert and oriented to person and place, not time. Lethargic affect. LABORATORY DATA: Reviewed. Notable for a creatinine of 4.98 with a BUN of 64. This is significantly elevated from baseline of near normal creatinine. BNP of 1128 with normal cardiac enzymes. Also noted to be anemic with hemoglobin of 8.7. IMAGING DATA: Reviewed. Chest x-ray shows pulmonary congestion, cardiomegaly. ELECTROCARDIOGRAM: Reviewed. TELEMETRY DATA: Reviewed. Shows sinus tachycardia, no ST-T changes concerning for acute ischemia. ASSESSMENT: 1. Congestive heart failure. 2. Acute renal failure. 3. Altered mental status. 4. Hypocalcemia. 5. Pulmonary edema. PLAN: Patient has been ruled out for acute VT with serial enzymes. Will get an echocardiogram to review her LV systolic function. Continue aspirin at this time. Will defer diuretics to Nephrology given the severe TED of unknown origin. Currently, although the chest x-ray shows mild congestion, patient is not in obvious cardiogenic shock or severe heart failure. Will await echocardiogram for further findings. Her volume overload may just be related to her worsening renal function. She is also relatively hypotensive with low-grade fevers. Will defer workup for possible sepsis to the primary team. Thank you for this consult. Will continue to follow. Job#: [id number] EV
[2018-07-18 17:34] LABS: ABG HCO3 16 mmol/L (23-28); ABG PCO2 49 mmHg (41-51); ABG PH 7.13 (7.31-7.41); ABG PO2 66 mmHg (80-105)
[2018-07-18 17:37] LABS: ACETAMINOPHEN < 3 ug/mL (10-30); SALICYLATE < 5.0 mg/dL (0-30)
[2018-07-18] MEDS ORDERED: LIDOCAINE HCL 1% LOCAL INJ 20 ML VIAL ONE (18:51)
--- NOTE | 2018-07-18 19:46 | Diagnostic Imaging Report ---
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 Additional Medications: Lidocaine 1% for local anesthesia Contrast used: None Estimated blood loss: Minimal Specimens: None Implants: 13 Hong [place]er, 15 cm triple-lumen hi flow central venous catheter DISCUSSION: Informed consent was obtained and documented in the medical record after discussion of risks and benefits. Preliminary sonographic evaluation of the right neck confirmed patency of the right internal jugular vein evidenced by compressibility. The right neck was prepped and draped in standard sterile fashion. 1% lidocaine was infiltrated into the skin and subcutaneous tissues for local anesthesia. Then under continuous sonographic guidance an 18-gauge singlewall needle was used to access the right internal jugular vein. A permanent sonographic image was stored in the medical record. A 0.0 3 5-in. J-wire was then advanced centrally through the needle to a depth of approximately 25 cm, with continuous cardiac rhythm monitoring. The needle was removed over the wire and the tract was dilated. Then a 13 [place]er, 15 cm triple-lumen central venous catheter was advanced over the wire to full depth. The wire was removed. Each lumen was tested and showed adequate bidirectional flow. All 3 lumens were then flushed with sterile saline. The catheter was secured to the skin with monofilament nylon suture and a sterile dressing was applied. The patient tolerated the procedure well without immediate complication. FINDINGS: Patent right internal jugular vein. IMPRESSION: Successful placement of a temporary hemodialysis catheter (13 [place]er, 15 cm triple-lumen) by a right internal jugular approach under sonographic guidance. Postprocedure chest radiograph will be obtained to confirm line positioning prior to use. Signed by: Dr. Kyaw Casarez M.D. on 07/18/2018 7:43 PM
--- NOTE | 2018-07-18 19:47 | Diagnostic Imaging Report ---
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 Additional Medications: Lidocaine 1% for local anesthesia Contrast used: None Estimated blood loss: Minimal Specimens: None Implants: 13 Montenegrin, 15 cm triple-lumen hi flow central venous catheter DISCUSSION: Informed consent was obtained and documented in the medical record after discussion of risks and benefits. Preliminary sonographic evaluation of the right neck confirmed patency of the right internal jugular vein evidenced by compressibility. The right neck was prepped and draped in standard sterile fashion. 1% lidocaine was infiltrated into the skin and subcutaneous tissues for local anesthesia. Then under continuous sonographic guidance an 18-gauge singlewall needle was used to access the right internal jugular vein. A permanent sonographic image was stored in the medical record. A 0.0 3 5-in. J-wire was then advanced centrally through the needle to a depth of approximately 25 cm, with continuous cardiac rhythm monitoring. The needle was removed over the wire and the tract was dilated. Then a 13 Montenegrin, 15 cm triple-lumen central venous catheter was advanced over the wire to full depth. The wire was removed. Each lumen was tested and showed adequate bidirectional flow. All 3 lumens were then flushed with sterile saline. The catheter was secured to the skin with monofilament nylon suture and a sterile dressing was applied. The patient tolerated the procedure well without immediate complication. FINDINGS: Patent right internal jugular vein. IMPRESSION: Successful placement of a temporary hemodialysis catheter (13 Montenegrin, 15 cm triple-lumen) by a right internal jugular approach under sonographic guidance. Postprocedure chest radiograph will be obtained to confirm line positioning prior to use. Signed by: Dr. Kyaw Casarez M.D. on 07/18/2018 7:43 PM
[2018-07-18] MEDS ORDERED: SODIUM CHLORIDE 0.9% 1000ML 2,000 ML ONE (20:23)
[2018-07-18 21:16] LABS: ANION GAP 25.1 mmol/L (8-16); CREATININE, SERUM 5.42 mg/dL (0.57-1.11); POTASSIUM 5.1 mmol/L (3.5-5.1)
[2018-07-18 21:18] LABS: CALCIUM 6.9 mg/dL (8.4-10.2)
[2018-07-18] MEDS ORDERED: HEPARIN SOD (PORCINE) 1000 UNIT/ML SDV ONE (21:34)
[2018-07-18] MEDS ORDERED: HEPARIN SOD (PORCINE) 1000 UNIT/ML SDV IV PRN (21:45)
--- NOTE | 2018-07-18 21:54 | Diagnostic Imaging Report ---
CHEST XRAY LINE PLACEMENT, 07/18/2018 7:20 PM Technique: CHEST XRAY LINE PLACEMENT Comparison: 07/18/2018 Clinical history: Central line placement Findings: See Impression. 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 Lucency of the left elbow may be artifactual from technique or osteopenia, incompletely assessed. Impression: 1. Lines/Tubes: Placement of right IJ approach central venous catheter at the cavoatrial junction. 2. Stable mildly enlarged cardiac silhouette. 3. Motion artifact. Low lung volumes with central vascular congestion and bibasilar opacities, favor atelectasis. 4. No pneumothorax. Signed by: Dr Safia Schultz MD on 07/18/2018 9:51 PM
[2018-07-19] VITALS (8 sets, daily range): BP systolic 118–150; BP diastolic 55–83
[2018-07-19] MEDS: ALBUTEROL/IPRATROPIUM 3 ML NEB NEB SCH ×5 (03:00→19:35)
[2018-07-19 04:59] LABS: BASOPHILS # (AUTO) 0.1 (0.0-0.1); BASOPHILS % 0.6 % (0.0-1.0); EOSINOPHILS % 0.1 % (0.0-6.0); HEMATOCRIT 28.5 % (34.2-44.1); HEMOGLOBIN 8.4 g/dL (12.0-16.0); LYMPHOCYTES # (AUTO) 0.8 (1.0-3.2); LYMPHOCYTES % 10.5 % (18.0-39.1); MEAN CORPUSCULAR HEMOGLOBIN 28.2 pg (28-32); MEAN CORPUSCULAR HGB CONC 29.5 g/dL (31-35); MEAN CORPUSCULAR VOLUME 95.6 fL (81-99); MONOCYTES # (AUTO) 0.4 (0.2-0.8); MONOCYTES % 4.9 % (4.4-11.3); NEUTROPHILS # (AUTO) 6.4 (2.1-6.9); NEUTROPHILS % 82.4 % (38.7-80.0); PLATELET COUNT 180 x10e3/uL (140-360); RED BLOOD COUNT 2.98 x10e6/uL (3.6-5.1); RED CELL DISTRIBUTION WIDTH 15.4 % (11.7-14.4)
[2018-07-19 05:22] LABS: ANION GAP 21.9 mmol/L (8-16); CALCIUM 7.4 mg/dL (8.4-10.2); CREATININE, SERUM 2.83 mg/dL (0.57-1.11); PHOSPHORUS 5.1 MG/DL (2.3-4.7); POTASSIUM 3.9 mmol/L (3.5-5.1)
[2018-07-19] MEDS: GABAPENTIN 300 MG CAP PO SCH ×3 (05:23→22:00)
[2018-07-19 05:50] LABS: MAGNESIUM 1.5 MG/DL (1.3-2.1)
[2018-07-19] MEDS: ANORO ELLIPTA INHALATION INH SCH (06:00)
[2018-07-19] MEDS: PANTOPRAZOLE 40 MG 10ML VIAL IV SCH (07:36)
[2018-07-19] MEDS: ONDANSETRON HCL INJ 2 MG/ML VIAL IV PRN ×3 (07:41→23:00)
[2018-07-19] MEDS: MIDODRINE HCL 5 MG TABLET PO SCH ×3 (08:00→16:00)
[2018-07-19] MEDS: SODIUM BICARBONATE 650 MG TAB PO SCH ×2 (09:00→16:13)
--- NOTE | 2018-07-19 12:39 | Progress Note ---
DATE: July 19, 2018 RENAL PROGRESS NOTE SUBJECTIVE: Followed for acute kidney injury on chronic kidney disease, stage 4 to stage 5. Patient is seen on dialysis treatment #2 today. Patient had dialysis treatment yesterday. No nausea. No vomiting. Shortness of breath is improved. Lower extremity edema is better also. OBJECTIVE VITAL SIGNS: Have been noted and are stable. Systolic BP is in the 130s mmHg. LUNGS: Clear to auscultation bilaterally. CARDIOVASCULAR: S1 and S2. No rubs. ABDOMEN: Soft and nontender. EXTREMITIES: No edema. LABORATORY DATA: Labs have been reviewed. IMPRESSION AND PLAN 1. Acute kidney injury on chronic kidney disease, stage 4 to stage 5. We will watch out dialysis tomorrow and if patient continues to have worsening kidney function, may need to stay on dialysis long-term. We will make further recommendations as more data becomes available. 2. Hypertension. Blood pressure is stable. Patient has been on midodrine, which is keeping her blood pressure up. 3. Fluid overload/congestive heart failure exacerbation. Ultrafiltration is being done with dialysis, which should help improve her overall volume status. Job#: [id number] INGRID
--- NOTE | 2018-07-19 12:44 | Progress Note ---
DATE: July 19, 2018 CARDIOLOGY PROGRESS NOTE SUBJECTIVE: Patient is awake, but does not respond or interact. She is receiving her second session of hemodialysis. OBJECTIVE VITAL SIGNS: Temperature 99.3 degrees, pulse 116, respiratory rate 20, blood pressure 125/55, oxygen saturation 94% on 2 liters nasal cannula. GENERAL: Elderly woman, no acute distress, not interactive. LUNGS: Decreased breath sounds at the bases, otherwise clear to auscultation. No wheezes or crackles. CARDIOVASCULAR: Tachycardic, but regular. No murmur. Normal S1 and S2. ABDOMEN: Soft, nontender. EXTREMITIES: No edema. CARDIAC MEDICATIONS: Midodrine 10 mg p.o. t.i.d. LABORATORY DATA: WBC 7.81, hemoglobin 8.4, hematocrit 28.5, platelets 180. Sodium 143, potassium 3.9, chloride 103, CO2 of 22, BUN 24, and creatinine 2.83. Telemetry, sinus tachycardia. IMPRESSION 1. Congestive heart failure. 2. Acute renal failure, initiate on hemodialysis. 3. Altered mental status. 4. Hypocalcemia. 5. Pulmonary edema. RECOMMENDATIONS: Patient ruled out for mild myocardial infarction with serial cardiac biomarkers. Echocardiogram has been ordered. Images will be reviewed once they are available. Continue aspirin. Given initiation on hemodialysis. we will defer volume management for nephrology. Further evaluation of altered mental status per primary service. Thank you for this consult. We will continue to follow. Job#: [id number] JIMMIE
[2018-07-19] MEDS: SODIUM CHLORIDE 0.9% 250ML IRRIG IR SCH ×3 (15:49→22:18)
[2018-07-19] MEDS: HYDROMORPHONE 1MG/1ML INJ IV PRN ×2 (16:36→20:35)
[2018-07-19 16:49] LABS: HEMATOCRIT 29.7 % (34.2-44.1)
--- NOTE | 2018-07-19 17:56 | Progress Note ---
DATE: July 19, 2018 TIME OF SERVICE: 9:15 a.m. SUBJECTIVE: Overnight the patient had coffee-ground emesis. Hemodialysis was also started. REVIEW OF SYSTEMS: Unobtainable. OBJECTIVE VITAL SIGNS: Reviewed. GENERAL APPEARANCE: A tired-appearing woman resting in the bed. HEENT: Anicteric. CARDIOVASCULAR: Normal S1 and S2. LUNGS: Reduced breath sounds throughout. Moderate breath sounds. ABDOMEN: Soft and nontender. Nondistended. EXTREMITIES: There is no edema. NEUROLOGIC: Confused. Moves extremities. SKIN: Dry. PSYCHIATRIC: Flat affect. LABS: Reviewed. MEDICATIONS: Reviewed. ASSESSMENT: A 72-year-old old woman. 1. Acute kidney injury/end-stage renal disease, started on hemodialysis yesterday. 2. Hyperkalemia. Started hemodialysis yesterday. 3. Hypocalcemia. 4. Normocytic anemia. 5. Acute exacerbation of congestive heart failure. 6. Pulmonary edema. 7. Chronic obstructive pulmonary disease. 8. Acute metabolic encephalopathy. 9. Coffee ground emesis. 10. Moderate anemia. PLAN: 1. Dialysis per nephrology. 2. Followup cardiology recommendations. 3. Monitor closely. 4. GI consultation. 5. Use IV proton pump inhibitor. 6. Continue with bicarb. 7. Blood pressure showed some improvement. Job#: [id number]
--- NOTE | 2018-07-19 21:22 | Diagnostic Imaging Report ---
Exam: Abdominal film Clinical History: Abdominal pain Comparison: None. DISCUSSION: Frontal view of the abdomen shows a nonobstructive bowel gas pattern with mild amount of retained stool. There are no dilated, air-filled loops of bowel. There are no abnormal calcifications. Right hemiarthroplasty. Left femoral neck screw with lateral plate construct partially visualized. IMPRESSION: 1. Nonobstructive bowel gas pattern. Signed by: Dr. Michael Martinez M.D. on 07/19/2018 7:46 PM
[2018-07-19] MEDS: LEVALBUTEROL HCL SOLN NEBU 0.63 MG/3 ML NEB INH SCH (23:05)
[2018-07-20] VITALS (9 sets, daily range): BP systolic 125–170; BP diastolic 65–94
[2018-07-20] MEDS: SODIUM CHLORIDE 0.9% 250ML IRRIG IR SCH ×4 (02:45→14:45)
[2018-07-20] MEDS: LEVALBUTEROL HCL SOLN NEBU 0.63 MG/3 ML NEB INH SCH ×6 (03:25→23:00)
[2018-07-20 05:14] LABS: BASOPHILS # (AUTO) 0.1 (0.0-0.1); BASOPHILS % 0.6 % (0.0-1.0); HEMATOCRIT 27.3 % (34.2-44.1); HEMOGLOBIN 8.3 g/dL (12.0-16.0); LYMPHOCYTES # (AUTO) 1.2 (1.0-3.2); MEAN CORPUSCULAR HEMOGLOBIN 28.6 pg (28-32); MEAN CORPUSCULAR HGB CONC 30.4 g/dL (31-35); MEAN CORPUSCULAR VOLUME 94.1 fL (81-99); MONOCYTES # (AUTO) 0.8 (0.2-0.8); MONOCYTES % 9.3 % (4.4-11.3); NEUTROPHILS # (AUTO) 6.3 (2.1-6.9); NEUTROPHILS % 75.6 % (38.7-80.0); PLATELET COUNT 217 x10e3/uL (140-360); RED CELL DISTRIBUTION WIDTH 15.3 % (11.7-14.4)
[2018-07-20 05:37] LABS: ANION GAP 19.7 mmol/L (8-16); CREATININE, SERUM 2.92 mg/dL (0.57-1.11); MAGNESIUM 1.5 MG/DL (1.3-2.1); PHOSPHORUS 4.5 MG/DL (2.3-4.7); POTASSIUM 3.7 mmol/L (3.5-5.1)
[2018-07-20 05:41] LABS: CALCIUM 8.8 mg/dL (8.4-10.2)
[2018-07-20] MEDS: ANORO ELLIPTA INHALATION INH SCH (06:00)
[2018-07-20] MEDS: GABAPENTIN 300 MG CAP PO SCH ×2 (06:00→14:00)
[2018-07-20] MEDS: HYDROMORPHONE 1MG/1ML INJ IV PRN (06:10)
--- NOTE | 2018-07-20 07:22 | Consultation ---
DATE OF CONSULTATION: July 20, 2018 This is a 72-year-old lady who has a history of chronic renal disease apparently presented to the hospital because of abdominal pain, abdominal distention, nausea, vomiting, and some confusion. Her workup so far revealed that she is somewhat anemic on admission. She has abdominal x-rays that were done yesterday that shows nonobstructive pattern. She is not giving much of a history at this point. Other medical problems per records significant for history of COPD, history of renal disease, history of anemia, history of osteoporosis, history of reflux. ALLERGIES: NONE. SOCIAL HISTORY: No alcohol history. FAMILY HISTORY: Noncontributory. REVIEW OF SYSTEMS: Unobtainable. PHYSICAL EXAMINATION GENERAL: Awake and lying in bed, and appears to be not in acute distress at this point. VITAL SIGNS: Afebrile currently. HEENT: Normocephalic. Sclerae are anicteric. HEART: Regular. LUNGS: Clear. ABDOMEN: Soft. Distended and diffusely tender mostly in the epigastric area. There is no rebound or mass. EXTREMITIES: No clubbing. LAB VALUES: This morning the BUN is 19, creatinine of 2.92. The hemoglobin is 8.3. KUB is as mentioned before. IMPRESSION 1. Nausea and vomiting. 2. Abdomen somewhat distended. 3. Anemia. 4. End-stage renal disease. 5. Congestive heart failure. RECOMMENDATIONS: Keep n.p.o. for now. I would like to get a CT scan of the abdomen and pelvis without contrast. Follow clinically. Job#: [id number] RI cc:REA HERNANDEZ MD
[2018-07-20] MEDS: MIDODRINE HCL 5 MG TABLET PO SCH ×3 (08:00→16:00)
[2018-07-20] MEDS ORDERED: DIATRIZOATE MEGL/DIATRIZOA SOD 30 ML BTL PO ONE (08:30)
[2018-07-20] MEDS: ASPIRIN 81 MG ENTERIC COATED PO SCH ×2 (09:00→11:57)
[2018-07-20] MEDS: SODIUM BICARBONATE 650 MG TAB PO SCH ×3 (09:00→16:43)
--- NOTE | 2018-07-20 11:19 | Diagnostic Imaging Report ---
EXAM: CT Abdomen and Pelvis WITHOUT contrast INDICATION: Pain, rule out small bowel obstruction COMPARISON: 07/19/2018 radiograph TECHNIQUE: Abdomen and Pelvis was scanned utilizing a multidetector helical scanner without the use of IV contrast. Coronal and sagittal reformations were obtained. IV CONTRAST: None COMPLICATIONS: None RADIATION DOSE: Total DLP: 552 mGy*cm Estimated effective dose: (DLP x 0.015 x size factor) mSv CTDIvol has been reviewed. It is below the limits set by the Radiation Protocol Committee (RPC). Appropriate CT dose reduction techniques were utilized. FINDINGS: Abdomen: Lung Bases: Motion artifact limits. Small bilateral pleural effusions with bibasilar areas of consolidation, asymmetric to the left. Incompletely evaluated given lack of IV contrast. Solid Organs: Motion artifact limits evaluation. Tiny nonobstructing calculi present right kidney, largest approximately 3 mm. There is marked prominence of the common duct measuring a proximally 16 mm in diameter. Gallbladder is not distinctly distended. No inflammatory changes noted. No calcified common duct stone identified. Nonenhanced images of solid organs otherwise unremarkable. Upper GI Tract: Decompressed stomach limits adequate evaluation. No small bowel obstructive changes are identified. Vascularity: Moderate aortic vascular calcifications with no aneurysm. Lymph Nodes: Within limitations of motion and nonenhanced exam, no suspicious adenopathy. Other: Small fat-containing umbilical hernia. Pelvis: Limitations due to extensive beam hardening artifact from post surgical changes bilateral hips. Bladder: Decompressed by Luna catheter. Other: Uterus/adnexa poorly evaluated nonenhanced exam. There is a 16 mm cystic lesion axial image 54 superior to the uterus which could represent exophytic fibroid versus right adnexal cystic lesion. Colon: Moderate rectal stool with wall thickening of the rectum. Ill-defined soft tissue prominence in the presacral region. Significant colonic stool through remainder of colon. Appendix not dilated. Bones: Dynamic hip screw left hip and total hip arthroplasty changes on the right noted. Bones are demineralized. IMPRESSION: 1. No small bowel obstructive changes. 2. Significant colonic stool, particularly in the rectum. Wall thickening suggest stercoral colitis. 3. Marked prominence of the common duct with no distinct dilation of the gallbladder. No pancreatic ductal dilatation identified. While choledochal cyst could have this appearance, distal stone or mass not entirely excluded. Clinical and laboratory correlation for biliary obstruction recommended. Right upper quadrant ultrasound could be obtained for further evaluation. 4. Presacral soft tissue prominence, nonspecific. 5. Small pleural effusions with asymmetric to the left bibasilar areas of consolidation, incompletely evaluated. Findings could represent atelectasis or pneumonia. 6. 16 mm hypodense lesion superior to the uterus could represent exophytic fibroid or cystic adnexal lesion. This could be better evaluated with ultrasound. 7. Nonobstructing tiny right renal calculi. Signed by: Dr. Ned Fernandez MD on 07/20/2018 11:16 AM
[2018-07-20] MEDS: PANTOPRAZOLE 40 MG 10ML VIAL IV SCH (11:57)
--- NOTE | 2018-07-20 15:58 | Progress Note ---
DATE: July 20, 2018 RENAL PROGRESS NOTE SUBJECTIVE: Patient is followed for acute kidney injury on chronic kidney disease stage 4. Patient had dialysis treatment number 2 yesterday. Patient will be watched off dialysis today. She is nonoliguric. Currently no nausea, no vomiting, no shortness of breath. OBJECTIVE VITAL SIGNS: Have been noted and are stable. LUNGS: Clear to auscultation bilaterally. CARDIOVASCULAR: S1 and S2. No rub. ABDOMEN: Soft, nontender. EXTREMITIES: No edema. LABS: Have been reviewed IMPRESSION AND PLAN 1. Acute kidney injury on chronic kidney disease stage 4. Will watch off dialysis today, recheck labs in the morning and make further recommendations with regards to further dialysis treatments. 2. Hypertension. Blood pressure currently is stable. Continue to monitor. 3. Congestive heart failure exacerbation is improved. Will continue to monitor closely and make further recommendations. Thank you once again. Job#: [id number] EV
[2018-07-21] VITALS: BP 157/80
[2018-07-21] MEDS: HYDROMORPHONE 1MG/1ML INJ IV PRN (02:28)
[2018-07-21] MEDS: LEVALBUTEROL HCL SOLN NEBU 0.63 MG/3 ML NEB INH SCH ×7 (03:08→23:00)
[2018-07-21 04:00] VITALS: BP 153/77
[2018-07-21 05:27] LABS: ANION GAP 20.2 mmol/L (8-16); CALCIUM 9.2 mg/dL (8.4-10.2); CREATININE, SERUM 4.19 mg/dL (0.57-1.11); POTASSIUM 4.2 mmol/L (3.5-5.1)
[2018-07-21 05:56] LABS: BASOPHILS # (AUTO) 0.1 (0.0-0.1); BASOPHILS % 0.7 % (0.0-1.0); EOSINOPHILS % 0.4 % (0.0-6.0); HEMATOCRIT 29.2 % (34.2-44.1); HEMOGLOBIN 8.8 g/dL (12.0-16.0); LYMPHOCYTES # (AUTO) 1.3 (1.0-3.2); LYMPHOCYTES % 12.2 % (18.0-39.1); MEAN CORPUSCULAR HEMOGLOBIN 28.6 pg (28-32); MEAN CORPUSCULAR HGB CONC 30.1 g/dL (31-35); MEAN CORPUSCULAR VOLUME 94.8 fL (81-99); NEUTROPHILS # (AUTO) 8.2 (2.1-6.9); NEUTROPHILS % 77.5 % (38.7-80.0); PLATELET COUNT 208 x10e3/uL (140-360); RED BLOOD COUNT 3.08 x10e6/uL (3.6-5.1); RED CELL DISTRIBUTION WIDTH 15.1 % (11.7-14.4)
[2018-07-21] MEDS: ANORO ELLIPTA INHALATION INH SCH (06:00)
[2018-07-21 08:00] VITALS: BP 179/81
[2018-07-21] MEDS: MIDODRINE HCL 5 MG TABLET PO SCH ×2 (08:00→16:55)
[2018-07-21] MEDS: PANTOPRAZOLE 40 MG 10ML VIAL IV SCH (10:48)
[2018-07-21 12:00] VITALS: BP 153/81
--- NOTE | 2018-07-21 12:24 | Progress Note ---
DATE: July 21, 2018 RENAL PROGRESS NOTE SUBJECTIVE: Followed for acute kidney injury on chronic kidney disease stage 4 to 5, which is not recovered. Patient has essentially had ESRD now. Estimated GFR 10 mL per minute. Creatinine is 4.2. Patient is requiring continue dialysis for both fluid overload as well as for uremia. She is seen on the dialysis treatment, which she is tolerating. Temporary dialysis catheter is giving a little bit of trouble. Currently, no nausea, no vomiting, no shortness of breath. OBJECTIVE VITAL SIGNS: Have been noted. Blood pressure is 150s to 170s/70s, pulse is in 100s to one-teens, afebrile. LUNGS: Minimal rales at the bases. CARDIOVASCULAR: S1 and S2. No rub. ABDOMEN: Soft and nontender. EXTREMITIES: No edema. LABS: Potassium is 4.2, BUN 37, and creatinine is 4.2. Hemoglobin is 8.8. IMPRESSION AND PLAN 1. End-stage renal disease. Patient is at end-stage renal disease based on her estimated glomerular filtration rate and also we will need to continue outpatient dialysis. We will make arrangements for outpatient dialysis. We will also get interventional radiology to place a tunnel dialysis catheter. We will also ask Dr. Addison to see the patient for arteriovenous placement. Patient would not be a good candidate for peritoneal dialysis, especially since she is not strong enough and likely will require [facility] care. 2. Hypertension. Blood pressure is stable. We will cut back midodrine since the blood pressure is actually rising and make further recommendations. 3. Anemia of chronic disease, stable hemoglobin and hematocrit. We will continue to monitor closely. 4. Metabolic acidosis. Bicarb is also slightly better. We will watch closely and decrease the sodium bicarb oral and make further recommendations. Thank you once again. Job#: [id number] VAS
--- NOTE | 2018-07-21 13:06 | Progress Note ---
DATE: July 21, 2018 CARDIOLOGY PROGRESS NOTE SUBJECTIVE: Patient denies chest pain or shortness of breath. She was seen receiving hemodialysis. OBJECTIVE VITAL SIGNS: Temperature 97.7 degrees, pulse 103, respiratory rate 20, blood pressure 179/81, oxygen saturation 92% on 2 liters nasal cannula. GENERAL: Elderly woman, in no acute distress. More awake. LUNGS: Decreased breath sound at the bases, otherwise clear to auscultation. No wheezes or crackles. CARDIOVASCULAR: Tachycardic, but regular. No murmur. Normal S1 and S2. ABDOMEN: Soft, nontender. EXTREMITIES: No edema. CARDIAC MEDICATIONS 1. Aspirin 81 mg p.o. daily. 2. Midodrine 10 mg p.o. t.i.d. LABS: WBC 10.57, hemoglobin 8.8, hematocrit 29.2, and platelets 208. Sodium 141, potassium 4.2, chloride 102, CO2 of 23, BUN 37, and creatinine 4.19. TELEMETRY: Sinus tachycardia. IMPRESSION 1. Acute diastolic heart failure. 2. Pulmonary hypertension by echocardiogram with elevated estimated right ventricular systolic pressure. 3. Acute renal failure, initiate on hemodialysis. 4. Altered mental status, improved. 5. Pulmonary edema. RECOMMENDATIONS: The patient ruled out for myocardial infarction with serial cardiac biomarkers. Volume management per nephrology. Given initiation on hemodialysis. Echocardiogram was reviewed. Patient has normal LV systolic function with impaired relaxation, elevated estimated RVSP, and a small pericardial effusion. Patient would benefit from further ultrafiltration, defer decision to nephrology. Continue current cardiac medications, otherwise. Patient however is now hypertensive. Recommend discontinuation of Midodrine. Monitor patient on telemetry. Thank you for this consult. We will continue to follow. Job#: [id number] JIMMIE
[2018-07-21 16:00] VITALS: BP 163/75
[2018-07-21] MEDS: SODIUM BICARBONATE 650 MG TAB PO SCH (16:54)
[2018-07-21] MEDS: ASPIRIN 81 MG ENTERIC COATED PO SCH (16:54)
--- NOTE | 2018-07-21 17:00 | Consultation ---
DATE OF CONSULTATION: July 21, 2018 REFERRING PHYSICIANS: Dr. Mayur Demarco and Dr. Vince Kenney HISTORY OF PRESENT ILLNESS: The patient is a 72-year-old female who was admitted to the hospital with acute kidney injury, pulmonary edema, congestive heart failure. She has been found to have end-stage renal disease and started on hemodialysis. She will need long-term access for hemodialysis. Currently, she has a tunneled catheter. Request is made for arteriovenous fistula. PAST MEDICAL HISTORY: Significant for chronic obstructive pulmonary disease, end-stage renal disease, previous pneumonia, anemia, previous urinary tract infection, previous hip fracture. The only surgery listed is repair ORIF of her right hip. She does not give any other history of any surgery. ALLERGIES: NO ALLERGIES. MEDICATIONS: Listed in the chart. FAMILY HISTORY: Noncontributory. SOCIAL HISTORY: The patient does not smoke cigarettes or drink alcohol. REVIEW OF SYSTEMS: Cannot be obtained. PHYSICAL EXAMINATION GENERAL: The patient is awake and alert, but does not really answer questions. HEENT: No scleral icterus. NECK: No masses. LUNGS: Decreased breath sounds at the bases bilaterally with decreased sounds throughout. CARDIAC: Regular rate and rhythm. Normal S1, S2 without murmur, S3 or S4. There is no jugular venous distention. ABDOMEN: Soft without tenderness. There is no mass. EXTREMITIES: The radial pulses are weakly palpable, but there are good brachial pulses bilaterally. There is slight edema of the lower extremities. ASSESSMENT: This is a 72-year-old female now with end-stage renal disease. She is to start hemodialysis and will need access for long-term hemodialysis. PLAN: Left arm AV fistula to be done probably next week after she has been dialyzed a few times. This was explained to the patient. Thank you for asking me to see Ms. Hooper. Job#: [id number]
[2018-07-21 20:30] VITALS: BP 171/81
[2018-07-22] VITALS (9 sets, daily range): BP systolic 145–171; BP diastolic 67–82
[2018-07-22 05:11] LABS: BASOPHILS % 0.4 % (0.0-1.0); EOSINOPHILS % 0.4 % (0.0-6.0); HEMATOCRIT 27.6 % (34.2-44.1); HEMOGLOBIN 8.3 g/dL (12.0-16.0); LYMPHOCYTES # (AUTO) 1.3 (1.0-3.2); LYMPHOCYTES % 11.6 % (18.0-39.1); MEAN CORPUSCULAR HEMOGLOBIN 28.3 pg (28-32); MEAN CORPUSCULAR HGB CONC 30.1 g/dL (31-35); MEAN CORPUSCULAR VOLUME 94.2 fL (81-99); MONOCYTES # (AUTO) 0.9 (0.2-0.8); MONOCYTES % 8.1 % (4.4-11.3); NEUTROPHILS # (AUTO) 8.9 (2.1-6.9); NEUTROPHILS % 79.1 % (38.7-80.0); PLATELET COUNT 192 x10e3/uL (140-360); RED BLOOD COUNT 2.93 x10e6/uL (3.6-5.1); RED CELL DISTRIBUTION WIDTH 14.8 % (11.7-14.4)
[2018-07-22 05:29] LABS: ANION GAP 21.5 mmol/L (8-16); CALCIUM 9.1 mg/dL (8.4-10.2); CREATININE, SERUM 2.66 mg/dL (0.57-1.11); MAGNESIUM 1.7 MG/DL (1.3-2.1); POTASSIUM 3.5 mmol/L (3.5-5.1)
[2018-07-22] MEDS: ANORO ELLIPTA INHALATION INH SCH (06:00)
[2018-07-22] MEDS: LEVALBUTEROL HCL SOLN NEBU 0.63 MG/3 ML NEB INH SCH ×4 (07:00→19:30)
[2018-07-22] MEDS: ASPIRIN 81 MG ENTERIC COATED PO SCH (08:54)
[2018-07-22] MEDS: PANTOPRAZOLE 40 MG 10ML VIAL IV SCH (08:54)
[2018-07-22] MEDS: MIDODRINE HCL 5 MG TABLET PO SCH ×2 (08:54→17:01)
[2018-07-22] MEDS: SODIUM BICARBONATE 650 MG TAB PO SCH ×2 (08:54→17:01)
--- NOTE | 2018-07-22 12:31 | Progress Note ---
DATE: July 21, 2018 TIME OF SERVICE: 7:45 a.m. OVERNIGHT: Did not receive dialysis yesterday. REVIEW OF SYSTEMS: Unobtainable. VITAL SIGNS: Reviewed. PHYSICAL EXAMINATION GENERAL: A tired-appearing woman resting in the bed. HEENT: Anicteric. CARDIOVASCULAR: Normal S1 and S2. LUNGS: Moderate breath sounds reduced throughout. ABDOMEN: Soft and nontender. EXTREMITIES: No edema. SKIN: Dry. PSYCHIATRIC: Flat affect. NEUROLOGIC: Awake, but confused. Moves all extremities. LABS: Reviewed. MEDICATIONS: Reviewed. ASSESSMENT: A 72-year-old old woman. 1. Acute kidney injury/end-stage renal disease, started on hemodialysis. 2. Electrolyte derangement. 3. Acute exacerbation of congestive heart failure, likely diastolic. 4. Chronic obstructive pulmonary disease. 5. Pericardial effusion, which is small. 6. Acute metabolic encephalopathy. 7. Coffee grounds emesis. 8. Moderate anemia. 9. Acute colitis. PLAN 1. Reduce oral intake per GI recommendations. 2. Hemodialysis held yesterday. 3. Creatinine was 2.9, now is 4.19. 4. I's and O's -2200. 5. Continue monitoring for clinical improvement. 6. Follow up. Job#: [id number]
--- NOTE | 2018-07-22 12:35 | Progress Note ---
DATE: July 22, 2018 TIME OF SERVICE: 7:45 a.m. OVERNIGHT: Less confused. REVIEW OF SYSTEMS: Denies any dizziness, chest pain, shortness of breath. Denies any fevers, chills, sweats, nausea or vomiting. VITAL SIGNS: Reviewed. PHYSICAL EXAMINATION GENERAL: A tired-appearing woman resting in bed. HEENT: Anicteric. CARDIOVASCULAR: Normal S1 and S2. LUNGS: Moderate breath sounds. ABDOMEN: Soft and nontender. EXTREMITIES: No edema. SKIN: Dry. PSYCHIATRIC: Flat affect. NEUROLOGIC: Awake. Less confused. Moves all extremities. LABS: Reviewed. MEDICATIONS: Reviewed. ASSESSMENT: A 72-year-old old woman. 1. Acute kidney injury/end-stage renal disease, started on dialysis. 2. Electrolyte derangement. 3. Normocytic anemia. 4. Acute exacerbation of congestive heart failure, likely diastolic. 5. Pulmonary edema. 6. Pericardial effusion, which is small. 7. Chronic obstructive pulmonary disease. 8. Acute metabolic encephalopathy. 9. Coffee grounds emesis. 10. Acute colitis. 11. Moderate anemia. PLAN 1. Limit food intake during acute colitis. 2. Continue antibiotic regimen. 3. Dialysis per nephrology. 4. Continue renal monitoring. 5. Hemoglobin is remaining stable. 6. Creatinine today is 2.66. 7. I's and O's were 120/400. 8. Will need skilled facility placement. Job#: [id number]
--- NOTE | 2018-07-22 13:04 | Progress Note ---
DATE: July 20, 2018 TIME: 07:35 a.m. SUBJECTIVE: Overnight, patient confused. REVIEW OF SYSTEMS: Not obtainable. PHYSICAL EXAMINATION VITAL SIGNS: Reviewed. GENERAL: A tired-appearing woman, resting in bed. HEENT: Anicteric. CARDIOVASCULAR: Normal S1, S2. LUNGS: Moderate breath sounds reduced throughout. ABDOMEN: Soft, nontender. EXTREMITIES: No edema. SKIN: Dry. PSYCHIATRIC: Flat affect. NEUROLOGIC: Confused. Moves all extremities. LABORATORY DATA: Reviewed. MEDICATIONS: Reviewed. ASSESSMENT: A 72-year-old old woman with; 1. Acute kidney injury/end-stage renal disease, requiring dialysis. 2. Hyperkalemia, on dialysis. 3. Hypocalcemia. 4. Normocytic anemia. 5. Acute exacerbation of congestive heart failure, likely diastolic. 6. Pulmonary edema. 7. Small pericardial effusion. 8. Chronic obstructive pulmonary disease. 9. Acute metabolic encephalopathy. 10. Coffee-grounds emesis. 11. Moderate anemia. PLAN 1. Continue dialysis. 2. Follow up imaging of the abdomen. 3. Continue IV PPI. 4. Continue monitoring closely. 5. Blood pressure support. Job#: [id number] HARISH
--- NOTE | 2018-07-22 17:02 | Progress Note ---
DATE: July 22, 2018 RENAL PROGRESS NOTE SUBJECTIVE: Patient followed for end-stage renal disease. Dialysis being done Wednesday, , Wednesday. Patient had dialysis yesterday. Next dialysis will be tomorrow. No nausea, no vomiting, no shortness of breath. Has not had any recovery of kidney function, started on dialysis in this hospitalization and a tunnel catheter has been placed. No nausea, no vomiting, no shortness of breath. OBJECTIVE VITAL SIGNS: Have been noted and are stable. LUNGS: Clear to auscultation bilaterally. CARDIOVASCULAR: S1 and S2. No rub. ABDOMEN: Soft, nontender. EXTREMITIES: No edema. LABS: Have been reviewed. IMPRESSION AND PLAN 1. End-stage renal disease. Continue dialysis Wednesday, , Wednesday. Await outpatient dialysis chair time. 2. Hypertension. Blood pressure controlled and stable. Will continue to monitor. 3. Anemia of chronic disease, stable. We will continue to monitor closely. Thank you once again. Job#: [id number] HARISH
[2018-07-23] VITALS (7 sets, daily range): BP systolic 120–150; BP diastolic 56–71
[2018-07-23] MEDS: LEVALBUTEROL HCL SOLN NEBU 0.63 MG/3 ML NEB INH SCH ×6 (02:30→23:05)
[2018-07-23 04:34] LABS: BASOPHILS % 0.3 % (0.0-1.0); EOSINOPHILS # (AUTO) 0.2 (0.0-0.4); EOSINOPHILS % 1.9 % (0.0-6.0); HEMATOCRIT 28.1 % (34.2-44.1); HEMOGLOBIN 8.7 g/dL (12.0-16.0); LYMPHOCYTES # (AUTO) 1.4 (1.0-3.2); LYMPHOCYTES % 11.5 % (18.0-39.1); MEAN CORPUSCULAR HEMOGLOBIN 28.6 pg (28-32); MEAN CORPUSCULAR VOLUME 92.4 fL (81-99); MONOCYTES # (AUTO) 0.9 (0.2-0.8); MONOCYTES % 7.8 % (4.4-11.3); NEUTROPHILS # (AUTO) 9.3 (2.1-6.9); PLATELET COUNT 193 x10e3/uL (140-360); RED BLOOD COUNT 3.04 x10e6/uL (3.6-5.1); RED CELL DISTRIBUTION WIDTH 14.8 % (11.7-14.4)
[2018-07-23 04:51] LABS: ANION GAP 17.6 mmol/L (8-16); CREATININE, SERUM 3.1 mg/dL (0.57-1.11); MAGNESIUM 1.4 MG/DL (1.3-2.1); PHOSPHORUS 3.6 MG/DL (2.3-4.7); POTASSIUM 3.6 mmol/L (3.5-5.1)
[2018-07-23] MEDS: ANORO ELLIPTA INHALATION INH SCH (06:00)
[2018-07-23] MEDS ORDERED: SODIUM CHLORIDE 0.9% 1000ML 2,000 ML ONE (06:21)
[2018-07-23] MEDS: HYDROMORPHONE 1MG/1ML INJ IV PRN (07:46)
[2018-07-23] MEDS: MIDODRINE HCL 5 MG TABLET PO SCH ×2 (09:13→16:46)
[2018-07-23] MEDS: PANTOPRAZOLE 40 MG 10ML VIAL IV SCH (09:13)
[2018-07-23] MEDS: ASPIRIN 81 MG ENTERIC COATED PO SCH (09:13)
[2018-07-23] MEDS: SODIUM BICARBONATE 650 MG TAB PO SCH ×2 (09:13→16:46)
--- NOTE | 2018-07-23 10:08 | Progress Note ---
DATE: July 23, 2018 CARDIOLOGY PROGRESS NOTE Ms. Hooper feels well. She is currently on dialysis. PHYSICAL EXAMINATION VITALS: Afebrile, heart rate 102, blood pressure is 148/70. CARDIOVASCULAR: Regular rhythm. LUNGS: Clear. ABDOMEN: Soft. MEDICATIONS: Reviewed. Telemetry shows sinus tachycardia. ASSESSMENT 1. Czial-ys-pdzfjwe diastolic heart failure with pulmonary hypertension. 2. Acute renal failure, on dialysis. RECOMMENDATIONS: Cardiac tesfaye, the patient has been ruled out for myocardial infarction. Continue current dialysis. She has diastolic heart failure, which is being managed with medical therapy, which includes metoprolol p.r.n. Her blood pressure limits the use of JENNIFER inhibitors and ARB. Will continue to follow. Job#: [id number] GERMAINE
--- NOTE | 2018-07-23 15:22 | Progress Note ---
DATE: July 23, 2018 RENAL PROGRESS NOTE SUBJECTIVE: Followed for end-stage renal disease. Tolerating dialysis on Wednesday, and Wednesday. Next dialysis will be on Wednesday next week. Awaiting outpatient dialysis chair time. Also, awaiting AV fistula surgery. No nausea. No vomiting. No shortness of breath. OBJECTIVE VITAL SIGNS: Have been noted. Blood pressure is 120/58, respirations 20 and afebrile. LUNGS: Clear to auscultation bilaterally. CARDIOVASCULAR: S1 and S2. No rub. ABDOMEN: Soft and nontender. EXTREMITIES: No edema. LABS: Have been reviewed. BUN is 38 and creatinine is 3.1. Sodium is 140, potassium 3.6. IMPRESSION AND PLAN 1. End-stage renal disease: Continue dialysis on Wednesday, and Wednesday. 2. Hypertension: Blood pressure is controlled. 3. Anemia of chronic disease: Stable H and H. Will continue to monitor. Job#: [id number] MD
[2018-07-24] VITALS: BP 135/65
[2018-07-24] MEDS: LEVALBUTEROL HCL SOLN NEBU 0.63 MG/3 ML NEB INH SCH ×6 (02:35→23:30)
[2018-07-24 04:00] VITALS: BP 158/72
[2018-07-24 05:57] LABS: ANION GAP 18.6 mmol/L (8-16); CALCIUM 8.7 mg/dL (8.4-10.2); CREATININE, SERUM 1.97 mg/dL (0.57-1.11); POTASSIUM 3.6 mmol/L (3.5-5.1)
[2018-07-24] MEDS: ANORO ELLIPTA INHALATION INH SCH (06:00)
[2018-07-24 08:00] VITALS: BP 158/71
[2018-07-24] MEDS: SODIUM BICARBONATE 650 MG TAB PO SCH ×2 (08:52→16:07)
[2018-07-24] MEDS: MIDODRINE HCL 5 MG TABLET PO SCH ×2 (08:52→16:07)
[2018-07-24] MEDS: ASPIRIN 81 MG ENTERIC COATED PO SCH (08:52)
[2018-07-24] MEDS: PANTOPRAZOLE 40 MG 10ML VIAL IV SCH (08:52)
[2018-07-24] MEDS: METOPROLOL TARTRATE INJ 1 MG/ML VIAL IV PRN ×2 (09:40→23:52)
[2018-07-24 12:37] VITALS: BP 142/68
[2018-07-24] MEDS: HYDROMORPHONE 1MG/1ML INJ IV PRN (13:18)
[2018-07-24] MEDS ORDERED: AZITHROMYCIN 500MG/NS 250 ML 250 ML IV SCH (15:45)
[2018-07-24] MEDS: ACETAMINOPHEN 325 MG TAB PO PRN ×2 (16:07→23:53)
[2018-07-24 16:35] VITALS: BP 137/71
[2018-07-24 18:30] LABS: CLARITY,URINE CLOUDY (CLEAR); COLOR,URINE YELLOW (YELLOW); KETONES,URINE NEGATIVE (NEGATIVE); LEUKOCYTE ESTERASE ,URINE 2+ (NEGATIVE); NITRITE,URINE POSITIVE (NEGATIVE); PROTEIN,URINE DIPSTICK 2+ (NEGATIVE)
[2018-07-24 18:31] LABS: BILIRUBIN,URINE 1+ (NEGATIVE); URINE UROBILINOGEN 0.2 mg/dL (0.2 - 1)
[2018-07-24 18:38] LABS: RBC,URINE 21-50 /HPF (0-5); WBC,URINE (MAN) >50 /HPF (0-5)
[2018-07-24 18:39] LABS: BACTERIA,URINE MANY /HPF; EPITHELIAL CELLS,URINE FEW /LPF
[2018-07-24 20:00] VITALS: BP 99/57
[2018-07-24] MEDS: AZTREONAM (AZACTAM) 0.5 GM in WATER STERILE 10ML VIAL 10 ML IV SCH (21:02)
[2018-07-24] MEDS ORDERED: AZTREONAM 1 GM VIAL IV SCH (22:00)
[2018-07-25] VITALS (9 sets, daily range): BP systolic 94–157; BP diastolic 51–79
[2018-07-25] MEDS: LEVALBUTEROL HCL SOLN NEBU 0.63 MG/3 ML NEB INH SCH ×6 (03:00→23:30)
[2018-07-25] MEDS: AZTREONAM (AZACTAM) 0.5 GM in WATER STERILE 10ML VIAL 10 ML IV SCH (05:30)
[2018-07-25] MEDS: ANORO ELLIPTA INHALATION INH SCH (05:30)
[2018-07-25] MEDS ORDERED: FENTANYL CITRATE/PF 100MCG/2 ML INJ ONE (07:10)
[2018-07-25] MEDS ORDERED: LIDOCAINE HCL 2% LOCAL 20 ML VIAL ONE (07:10)
[2018-07-25] MEDS ORDERED: MIDAZOLAM HCL 2 MG/2 ML VIAL ONE (07:10)
[2018-07-25] MEDS ORDERED: SODIUM CHLORIDE 0.9% 500ML 1,000 ML ONE (07:10)
[2018-07-25] MEDS ORDERED: LIDOCAINE HCL 1% LOCAL INJ 20 ML VIAL ONE (09:17)
--- NOTE | 2018-07-25 09:31 | Progress Note ---
DATE: July 25, 2018 RENAL PROGRESS NOTE SUBJECTIVE: Followed for end-stage renal disease. Dialysis being done on Wednesday, and Wednesday. Last dialysis was done on Wednesday. No labs available from today. Creatinine post dialysis on July 24, 2018, was 1.97. On Wednesday, creatinine was 3.1 predialysis. No nausea. No vomiting. No shortness of breath at this time. OBJECTIVE VITAL SIGNS: Have been noted and are as follows: Blood pressure is 120/50, afebrile. LUNGS: Clear to auscultation bilaterally. CARDIOVASCULAR: S1 and S2. No rub. ABDOMEN: Soft and nontender. EXTREMITIES: No edema. LABS: Not available from today. IMPRESSION AND PLAN 1. End-stage renal disease: Will do dialysis on Wednesday, and Wednesday. Await outpatient dialysis chair time. Will also order labs for tomorrow. Basic metabolic panel. Mag, phos and CBC. 2. Hypertension: Blood pressure appears to be tightly controlled. Will adjust medications accordingly. 3. Anemia of chronic disease: Stable. Continue to monitor. Job#: [id number] GERMAINE
[2018-07-25] MEDS ORDERED: HEPARIN SOD (PORCINE) 1000 UNIT/ML 30ML ONE (09:38)
--- NOTE | 2018-07-25 10:47 | Diagnostic Imaging Report ---
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 Casarez Pre-operative diagnosis: End-stage renal disease Post-operative diagnosis: End-stage renal disease Conscious Sedation: Versed 1 mg and Fentanyl 50 mcg. The patient's heart rate and pulse oximetry were continuously monitored by the interventional radiology nurse. Blood pressure was monitored at 5 minute intervals. Total sedation time: 30 minutes Additional Medications: Lidocaine 1% for local anesthesia Fluoroscopy time: 0.6 minutes Dose-area Product: 34.3 cGycm2. Contrast used: None Estimated blood loss: Less than 10 cc Blood products administered: None Specimens: Temporary hemodialysis catheter discarded Implants: 16 Palauan 19 cm tunneled hemodialysis catheter DISCUSSION: The patient was placed in the supine position on the fluoroscopy table. Preliminary sonographic evaluation confirmed patency of the right internal jugular vein, evidenced by compressibility. The right neck and upper chest wall were prepped and draped in the standard sterile fashion. 1% lidocaine was infiltrated into the right cervical subcutaneous tissues for local anesthesia. Using ultrasound guidance, a 21-gauge micropuncture needle was utilized to access the right internal jugular vein. A permanent sonographic image was archived in PACS. A 0.018 inch guidewire was advanced through the needle into the superior vena cava under fluoroscopic guidance. The needle was removed and a 5-Palauan micropuncture sheath was advanced over the wire to secure access. Intravascular length to the upper right atrium was determined using the 0.018 inch wire. Subsequently, the wire and inner dilator of the micropuncture sheath were removed, and a 0.035 inch wire was advanced through the micropuncture sheath and into the inferior vena cava. Attention was then turned to creation of a subcutaneous tunnel on the right upper chest. 1% lidocaine was infiltrated into the subcutaneous tissues inferior and lateral to the micropuncture sheath. A small stab incision was made a few inches inferolateral to the sheath insertion site, approximately 3 fingerbreadth below the clavicle, and blunt dissection was utilized to tunnel the catheter from the skin incision to the sheath insertion site, placing the catheter cuff well into the subcutaneous tunnel. The tract was serially dilated and a 16 Palauan peel-away sheath was advanced over the wire under fluoroscopic guidance. The wire and inner dilator were removed and the catheter was then advanced through the peel-away sheath, which was subsequently broken and removed. The catheter was positioned with the tip in the upper right atrium. Both catheter lumens demonstrated good bidirectional blood flow, and were then flushed with heparinized saline. Each port was packed with 2000 units of heparin. The catheter was then secured to the skin using monofilament nylon suture, and a sterile dressing was applied. The retention sutures for the previously placed temporary right hemodialysis catheter were then cut and the catheter was removed in total. Hemostasis was achieved with manual compression. Sterile dressing was applied. The patient tolerated the procedure well without immediate complication. FINDINGS: 1. Patent right internal jugular vein. IMPRESSION: Successful placement of a tunneled hemodialysis catheter (16 Palauan, 19 cm tip-cuff length) by a right internal jugular approach under sonographic and fluoroscopic guidance. Signed by: Dr. Kyaw Casarez M.D. on 07/25/2018 10:44 AM
[2018-07-25] MEDS: PANTOPRAZOLE 40 MG 10ML VIAL IV SCH (11:10)
[2018-07-25] MEDS: SODIUM BICARBONATE 650 MG TAB PO SCH ×2 (11:10→17:17)
[2018-07-25] MEDS: MIDODRINE HCL 5 MG TABLET PO SCH ×2 (11:10→17:17)
[2018-07-25] MEDS: ASPIRIN 81 MG ENTERIC COATED PO SCH (11:10)
[2018-07-25] MEDS ORDERED: SODIUM CHLORIDE 0.9% 250ML 250 ML ONE (15:42)
[2018-07-25] MEDS: AZTREONAM (AZACTAM) 0.5 GM in SODIUM CHLORIDE 0.9% 50ML 50 ML IV SCH ×2 (15:47→20:23)
[2018-07-25] MEDS: ACETAMINOPHEN 325 MG TAB PO PRN (20:39)
--- NOTE | 2018-07-25 21:36 | Progress Note ---
DATE: July 23, 2018 TIME: 7:15 a.m. OVERNIGHT: Patient received hemodialysis. REVIEW OF SYSTEMS: Unreliable. PHYSICAL EXAMINATION: VITAL SIGNS: Reviewed. GENERAL APPEARANCE: Tired-appearing woman resting in bed. HEENT: Anicteric. CARDIOVASCULAR: Normal S1 and S2. LUNGS: Moderate breath sounds, mildly coarse. ABDOMEN: Soft, nontender. EXTREMITIES: No edema. SKIN: Dry. PSYCHIATRIC: Flat affect. NEUROLOGICAL: Awake, but confused. LABS: Reviewed. MEDICATIONS: Reviewed. ASSESSMENT: A 72-year-old woman. 1. Acute kidney injury/end-stage renal disease, started on dialysis. 2. Electrolyte derangement. 3. Normocytic anemia. 4. Acute exacerbation of congestive heart failure, likely diastolic. 5. Pulmonary edema. 6. Pericardial effusion, small. 7. Chronic obstructive pulmonary disease. 8. Acute metabolic encephalopathy. 9. Coffee-ground emesis. 10. Acute colitis. 11. Moderate anemia. PLAN: 1. Continue dialysis per nephrology. 2. Continue supportive care. 3. Continue other medications. Job#: [id number]
--- NOTE | 2018-07-25 21:42 | Progress Note ---
DATE: July 24, 2018 TIME: 7:30 a.m. OVERNIGHT: Low-grade fever, cultures obtained. REVIEW OF SYSTEMS: Unreliable. PHYSICAL EXAMINATION: VITAL SIGNS: Reviewed. GENERAL APPEARANCE: Tired-appearing woman resting in bed. HEENT: Anicteric. CARDIOVASCULAR: Normal S1 and S2. LUNGS: Mildly coarse breath sounds. ABDOMEN: Soft, nontender. EXTREMITIES: No edema. SKIN: Dry. PSYCHIATRIC: Flat affect. NEUROLOGICAL: Awake, but confused. LABS: Reviewed. MEDICATIONS: Reviewed. ASSESSMENT: A 72-year-old woman. 1. Acute kidney injury/end-stage renal disease, started on dialysis. 2. Electrolyte derangement. 3. Normocytic anemia. 4. Acute exacerbation of congestive heart failure, likely diastolic. 5. Pulmonary edema. 6. Pericardial effusion, small. 7. Chronic obstructive pulmonary disease. 8. Acute metabolic encephalopathy. 9. Coffee-ground emesis. 10. Acute colitis. 11. Moderate anemia. PLAN: 1. Continue dialysis per nephrology. 3. Continue other medication regimen. 3. Continue physical therapy. 4. Monitor fluid balance. Job#: [id number]
--- NOTE | 2018-07-25 21:56 | Progress Note ---
DATE: July 25, 2018 TIME: 4:10 p.m. SUBJECTIVE: Overnight, less confused. REVIEW OF SYSTEMS: Denies any dizziness, chest pain. Denies any fever, chills, sweats. Denies any headache or vision changes bilaterally. PHYSICAL EXAMINATION VITAL SIGNS: Reviewed. GENERAL: A tired appearing woman, resting in bed. HEENT: Anicteric. CARDIOVASCULAR: Normal S1, S2. LUNGS: Moderate breath sounds. ABDOMEN: Soft, nontender. EXTREMITIES: No edema. SKIN: Dry. PSYCHIATRIC: Flat affect. NEUROLOGICAL: Awake. Moves all extremities. LABS: Reviewed. MEDICATIONS: Reviewed. ASSESSMENT: A 72-year-old with, 1. Acute kidney injury/end-stage renal disease, on dialysis. 2. Electrolyte derangement. 3. Normocytic anemia. 4. Acute exacerbation of diastolic congestive heart failure. 5. Pulmonary edema. 6. Pericardial effusion, small. 7. Chronic obstructive pulmonary disease. 8. Acute metabolic encephalopathy. 9. Coffee-ground emesis. 10. Acute colitis. 11. Moderate anemia. PLAN 1. Continue dialysis per nephrology. 2. Dialysis being set up for outpatient. 3. Continue antibiotic regimen. 4. Follow up cultures. 5. Continue supportive care. 6. Continue other medication regimen. Job#: [id number] FRANKI
[2018-07-25] MEDS ORDERED: VANCOMYCIN 1GM/NS 250 ML 250 ML IV ONE (23:00)
[2018-07-26] VITALS: BP 109/54
--- NOTE | 2018-07-26 00:37 | Progress Note ---
DATE: July 25, 2018 CARDIOLOGY PROGRESS NOTE SUBJECTIVE: Patient denies chest pain or shortness of breath. She appeared quite weak. OBJECTIVE VITAL SIGNS: Temperature 102.5 degrees, pulse 107, respiratory rate 18, blood pressure 154/70, oxygen saturation 96% on 3 L nasal cannula. GENERAL: Elderly woman, frail, no acute distress. LUNGS: Decreased breath sound at the bases, otherwise clear to auscultation. No wheezes or crackles. CARDIOVASCULAR: Tachycardic, but regular. No murmur. Normal S1, S2. ABDOMEN: Soft, nontender. EXTREMITIES: No edema. CARDIAC MEDICATIONS 1. Aspirin 81 mg p.o. daily. 2. Metoprolol tartrate 5 mg IV q.2 h p.r.n. 3. Midodrine 10 mg p.o. t.i.d. LABS: None today. Urine culture growing gram-negative bacillus with blood cultures growing gram-positive cocci in clusters. IMPRESSIONS 1. Acute renal failure initiated on hemodialysis. 2. Gram-positive cocci bacteremia. 3. Gram-negative melody urinary tract infection. 4. Acute diastolic heart failure. 5. Pulmonary hypertension by echocardiogram with elevated estimated right ventricular systolic pressure. 6. Pulmonary edema. Continue current cardiac medications. Antibiotics per primary service. Volume management per nephrology given initiated on hemodialysis. She would benefit from ultrafiltration if her blood pressure permits. Monitor patient on telemetry. Thank you for this consult. We will continue to follow. Job#: [id number] CQ
[2018-07-26] MEDS: LEVALBUTEROL HCL SOLN NEBU 0.63 MG/3 ML NEB INH SCH ×6 (03:00→23:37)
[2018-07-26 04:00] VITALS: BP 105/54
[2018-07-26 05:24] LABS: BASOPHILS % 0.3 % (0.0-1.0); EOSINOPHILS % 0.1 % (0.0-6.0); HEMATOCRIT 28.7 % (34.2-44.1); HEMOGLOBIN 8.6 g/dL (12.0-16.0); LYMPHOCYTES # (AUTO) 0.9 (1.0-3.2); LYMPHOCYTES % 7.4 % (18.0-39.1); MEAN CORPUSCULAR HEMOGLOBIN 28.4 pg (28-32); MEAN CORPUSCULAR VOLUME 94.7 fL (81-99); MONOCYTES # (AUTO) 0.9 (0.2-0.8); MONOCYTES % 7.7 % (4.4-11.3); NEUTROPHILS # (AUTO) 10.2 (2.1-6.9); NEUTROPHILS % 83.4 % (38.7-80.0); PLATELET COUNT 192 x10e3/uL (140-360); RED BLOOD COUNT 3.03 x10e6/uL (3.6-5.1); RED CELL DISTRIBUTION WIDTH 14.6 % (11.7-14.4)
[2018-07-26] MEDS: ANORO ELLIPTA INHALATION INH SCH (05:30)
[2018-07-26] MEDS: AZTREONAM (AZACTAM) 0.5 GM in SODIUM CHLORIDE 0.9% 50ML 50 ML IV SCH ×3 (05:46→22:08)
[2018-07-26 05:59] LABS: ANION GAP 17.5 mmol/L (8-16); CALCIUM 7.2 mg/dL (8.4-10.2); CREATININE, SERUM 2.62 mg/dL (0.57-1.11); MAGNESIUM 1.2 MG/DL (1.3-2.1); PHOSPHORUS 3.8 MG/DL (2.3-4.7); POTASSIUM 3.5 mmol/L (3.5-5.1)
[2018-07-26 08:00] VITALS: BP 116/56
[2018-07-26] MEDS: PANTOPRAZOLE 40 MG 10ML VIAL IV SCH (09:55)
[2018-07-26] MEDS: ASPIRIN 81 MG ENTERIC COATED PO SCH (09:55)
[2018-07-26] MEDS: MIDODRINE HCL 5 MG TABLET PO SCH ×3 (09:56→17:06)
[2018-07-26] MEDS: SODIUM BICARBONATE 650 MG TAB PO SCH ×2 (09:56→17:05)
[2018-07-26] MEDS ORDERED: ALBUMIN 25% 12.5GM 50 ML IV PRN (11:15)
[2018-07-26] MEDS ORDERED: HEPARIN SOD (PORCINE) 1000 UNIT/ML SDV IV PRN (11:15)
[2018-07-26] MEDS ORDERED: MANNITOL 25% 12.5GM/50 ML VIAL IV PRN (11:15)
[2018-07-26] MEDS ORDERED: SODIUM CHLORIDE 0.9% 1000ML 1,000 ML IV PRN (11:15)
[2018-07-26 12:00] VITALS: BP 101/43
--- NOTE | 2018-07-26 12:16 | Progress Note ---
DATE: July 26, 2018 CARDIOLOGY PROGRESS NOTE SUBJECTIVE: Patient denies chest pain or shortness of breath. She is more awake today. OBJECTIVE VITAL SIGNS: Temperature 97 degrees, pulse 92, respiratory rate 16, blood pressure 116/56, and oxygen saturation 95% on 3 liters nasal cannula. GENERAL: Elderly woman, frail, no acute distress, awake and alert. LUNGS: Clear to auscultation bilaterally other than decreased breath sounds at the basis. No wheezes or crackles. CARDIOVASCULAR: Normal rate, regular rhythm. No murmur. Normal S1 and S2. ABDOMEN: Soft and nontender. EXTREMITIES: No edema. CARDIAC MEDICATIONS 1. Aspirin 81 mg p.o. daily. 2. Metoprolol tartrate 5 mg IV every hours p.r.n. 3. Midodrine 10 mg p.o. t.i.d. LABS: WBC 12.22, hemoglobin 8.6, hematocrit 28.7, and platelets 192. Sodium 134, potassium 3.5, chloride 98, CO2 of 22, BUN 52, and creatinine 2.62. Blood cultures growing gram-positive cocci and clusters in 4 out of 4 sets. IMPRESSION 1. Acute renal failure, initiated on hemodialysis. 2. Gram-positive cocci bacteremia. 3. Gram-negative melody urinary tract infection. 4. Acute diastolic heart failure. 5. Pulmonary hypertension by echocardiogram with elevated estimated right ventricular systolic pressure. 6. Pulmonary edema. RECOMMENDATIONS: Continue current cardiac medications. Antibiotics per primary service. Volume management per nephrology given initiation on hemodialysis. She would benefit from ultrafiltration as her blood pressure permits. Monitor patient on telemetry. Thank you for this consult. We will continue to follow. Job#: [id number] RTTonny
[2018-07-26] MEDS ORDERED: MEROPENEM 500MG 250 MG in SODIUM CHLORIDE 0.9% 50ML 50 ML IV SCH (14:00)
[2018-07-26] MEDS ORDERED: MAGNESIUM SULFATE 2GM/50ML 50 ML IV ONE ×2 (14:30→17:15)
--- NOTE | 2018-07-26 14:36 | Progress Note ---
DATE: July 26, 2018 RENAL PROGRESS NOTE SUBJECTIVE: Followed for end-stage renal disease. Tolerating dialysis on Wednesday, and Wednesday. Patient tolerated dialysis 2-1/2 hours today. No nausea. No vomiting. No shortness of breath. OBJECTIVE VITAL SIGNS: Noted. Blood pressure is 101/43, 80 pulse, afebrile. LUNGS: Clear to auscultation bilaterally. CARDIOVASCULAR: S1 and S2. No rub. ABDOMEN: Soft and nontender. EXTREMITIES: No edema. LABS: BUN 52, creatinine 2.6, sodium 134, potassium 3.5, magnesium 1.2, phosphorus 3.8, calcium 7.2. IMPRESSION AND PLAN 1. End-stage renal disease. Continue dialysis on Wednesday, and Wednesday. Await outpatient dialysis placement. 2. Hypertension/hypotension. Blood pressure is on the low side of normal. Will continue midodrine. Increase dose to 5 mg 3 times a day. 3. Hypomagnesemia. Replace with 2 grams magnesium sulfate. 4. Anemia of chronic disease, stable. Continue to monitor. Job#: [id number]
[2018-07-26] MEDS ORDERED: SODIUM CHLORIDE 0.9% 250ML 250 ML ONE (15:21)
[2018-07-26] MEDS: MEROPENEM 500MG 250 MG in SODIUM CHLORIDE 0.9% 50ML 50 ML IV SCH ×2 (15:30→21:18)
[2018-07-26 16:00] VITALS: BP 148/68
[2018-07-26] MEDS ORDERED: SODIUM CHLORIDE 0.9% 50ML 50 ML ONE (16:16)
[2018-07-26 20:00] VITALS: BP 126/59
[2018-07-27] VITALS (7 sets, daily range): BP systolic 114–142; BP diastolic 56–65
[2018-07-27] MEDS: LEVALBUTEROL HCL SOLN NEBU 0.63 MG/3 ML NEB INH SCH ×6 (04:51→22:50)
[2018-07-27 05:00] LABS: BASOPHILS % 0.4 % (0.0-1.0); EOSINOPHILS # (AUTO) 0.1 (0.0-0.4); EOSINOPHILS % 0.6 % (0.0-6.0); LYMPHOCYTES % 12.2 % (18.0-39.1); MEAN CORPUSCULAR HEMOGLOBIN 28.5 pg (28-32); MEAN CORPUSCULAR HGB CONC 30.7 g/dL (31-35); MEAN CORPUSCULAR VOLUME 92.7 fL (81-99); MONOCYTES # (AUTO) 0.7 (0.2-0.8); MONOCYTES % 8.8 % (4.4-11.3); NEUTROPHILS # (AUTO) 6.3 (2.1-6.9); PLATELET COUNT 183 x10e3/uL (140-360); RED BLOOD COUNT 2.46 x10e6/uL (3.6-5.1); RED CELL DISTRIBUTION WIDTH 14.6 % (11.7-14.4)
[2018-07-27 05:20] LABS: ANION GAP 13.1 mmol/L (8-16); CALCIUM 7.8 mg/dL (8.4-10.2); CREATININE, SERUM 1.45 mg/dL (0.57-1.11); POTASSIUM 3.1 mmol/L (3.5-5.1)
[2018-07-27 05:28] LABS: HEMATOCRIT 22.8 % (34.2-44.1)
[2018-07-27] MEDS: MEROPENEM 500MG 250 MG in SODIUM CHLORIDE 0.9% 50ML 50 ML IV SCH ×3 (05:37→21:19)
[2018-07-27] MEDS: ANORO ELLIPTA INHALATION INH SCH (06:00)
[2018-07-27] MEDS: AZTREONAM (AZACTAM) 0.5 GM in SODIUM CHLORIDE 0.9% 50ML 50 ML IV SCH (06:18)
[2018-07-27] MEDS: ACETAMINOPHEN 325 MG TAB PO PRN ×2 (06:30→20:24)
[2018-07-27] MEDS: MIDODRINE HCL 5 MG TABLET PO SCH ×2 (08:00→13:24)
[2018-07-27 08:10] LABS: BAND NEUTROPHILS % (MANUAL) 3 %; EOSINOPHILS % (MANUAL) 3 % (0-7); LYMPHOCYTES % (MANUAL) 7 % (19-48); MONOCYTES % (MANUAL) 3 % (3.4-9.0); NEUTROPHILS % (MANUAL) 83 % (40-74)
[2018-07-27 08:11] LABS: ANISOCYTOSIS SLIGHT; HYPOCHROMASIA MODERATE; PLATELET ESTIMATE ADEQUATE; PLATELET MORPHOLOGY COMMENT FEW LARGE; RBC MORPHOLOGY COMMENT NORMAL
[2018-07-27] MEDS: ASPIRIN 81 MG ENTERIC COATED PO SCH (09:45)
[2018-07-27] MEDS: SODIUM BICARBONATE 650 MG TAB PO SCH ×2 (09:45→18:31)
[2018-07-27] MEDS: PANTOPRAZOLE 40 MG 10ML VIAL IV SCH (09:45)
[2018-07-27] MEDS ORDERED: PNEUMOCOCCAL VACCINE POLYVALENT 23 MCG/0.5 ML VIAL IM ONE (13:00)
[2018-07-27] MEDS ORDERED: VANCOMYCIN 750MG/NS 150ML IVPB 150 ML IV ONE (13:45)
[2018-07-27] MEDS ORDERED: VANCOMYCIN 750MG/NS 150ML IVPB 150 ML IV PRN (13:45)
--- NOTE | 2018-07-27 14:25 | Consultation ---
DATE OF CONSULTATION: July 27, 2018 INFECTIOUS DISEASE CONSULTATION ATTENDING PHYSICIAN: Dr. Mayur Demarco REASON FOR CONSULTATION: Staph in the blood. Thank you, Dr. Demarco, for asking me to see this patient. HISTORY: The patient is a 72-year-old woman referred for staph in the blood. She was admitted through the emergency department with altered mental status and renal failure. She presented to the emergency department on 07/17/2018 with confusion. The patient was not feeling well and was sleeping too much and had difficulty staying awake. She did not have fever or chills, cough, shortness of breath, nausea, vomiting, diarrhea, abdominal pain or dysuria. In the emergency department, she was noted to have temperature of 98.5 degrees Fahrenheit, pulse 96, respiratory rate 12, blood pressure 90/41, and oxygen saturation 98% on room air. Initial laboratory studies show blood leukocyte count of 10,070 with 68.1% neutrophils, BUN 59, creatinine 4.56, and negative urinalysis. Brain CT scan showed no acute findings. The patient was evaluated by the renal service and started on hemodialysis through a tunneled right internal jugular vein catheter placed on 07/18/2018 by the interventional radiologist. On 07/24/2018, the patient spiked fever. Blood culture collected to work up the fever later grew methicillin-resistant Staphylococcus aureus. Also, urine culture grew E. coli, ESBL positive. PAST MEDICAL HISTORY: Chronic obstructive pulmonary disease and depression. PAST SURGICAL HISTORY: Cataract surgery, open reduction and internal fixation of the left hip, and right hip arthroplasty. ALLERGIES: NO KNOWN DRUG ALLERGIES. MEDICATIONS: The current antibiotics are meropenem 500 mg IV piggyback q.8 h. and Azactam 500 mg IV piggyback q.8 h. She received 1 gram of vancomycin intravenously on 07/25/2018. IMMUNIZATION: She has not received pneumococcal vaccination. FAMILY HISTORY: Noncontributory. SOCIAL HISTORY: She quit drinking alcohol about 10 years ago and smoking cigarettes about 2 years ago. She used to be a heavy alcohol consumer, and she was also a heavy tobacco user. She denies recreational drug use. REVIEW OF SYSTEMS: As per history of present illness. PHYSICAL EXAMINATION VITALS: T-max 99.8, pulse 71 respiratory rate 20, blood pressure 135/62. Weight is 100.5 pounds. GENERAL: No acute distress. HEENT: Normocephalic. There is no icterus or injection of conjunctivae. There is no ear or nasal discharge. Moist oral mucosa with dentures. No pharyngeal erythema or exudate. NECK: Supple. No meningismus. LUNGS: Decreased breath sounds bilaterally. HEART: Normal S1 and S2. ABDOMEN: Normal bowel sounds in all quadrants. Soft and nontender. EXTREMITIES: There is no edema, clubbing or cyanosis. SKIN: There is no acute erythema. [employer]ENT[employer]PER[employer]: Awake, alert and oriented to person, place and time. Nonfocal. LABORATORY AND DIAGNOSTICS: WBC 8170, hemoglobin 7, platelets 183,000, neutrophils 77, lymphs 12.2, monos 8.8, eosinophils 0.6, basophils 0.4. BUN 26, creatinine 1.45. On 07/24/2018, blood culture grew methicillin-resistant Staphylococcus aureus. On 07/25/2018, blood culture grew Staph aureus sensitivity pending. On 07/26/2018, blood culture is pending. On 07/19/2018, urine culture showed no growth. On 07/24/2018, urine culture grew E. coli, ESBL positive. IMPRESSION 1. Methicillin-resistant Staphylococcus aureus bacteremia likely due to hemodialysis catheter infection. 2. Bacteriuria due to Escherichia coli, extended spectrum beta lactamase positive, probably colonization. 3. Renal failure. 4. Chronic obstructive pulmonary disease. PLAN 1. Remove Luna catheter and stop aztreonam and meropenem. Continue vancomycin 750 mg post hemodialysis starting today. Pneumococcal vaccination should be administered to the patient. She agrees. 2. Await echocardiogram report. Remove the current hemodialysis catheter. It should be replaced when the patient's blood is sterilized. Job#: [id number]
--- NOTE | 2018-07-27 15:55 | Progress Note ---
DATE: July 27, 2018 CARDIOLOGY PROGRESS NOTE SUBJECTIVE: Patient denies chest pain or shortness of breath. She reports she is going downstairs for a new tunneled dialysis catheter today. OBJECTIVE VITAL SIGNS: Temperature 98.2 degrees, pulse 71, respiratory rate 20, blood pressure 135/62, oxygen saturation 96% on 3 liters nasal cannula. GENERAL: Elderly woman, frail, in no acute distress. Awake and alert. LUNGS: Clear to auscultation bilaterally. No wheezes or crackles. CARDIOVASCULAR: Normal rate, regular rhythm. No murmur. Normal S1 and S2. ABDOMEN: Soft, nontender. EXTREMITIES: No edema. CARDIAC MEDICATIONS 1. Aspirin 81 mg p.o. daily. 2. Metoprolol tartrate 5 mg IV q.2 h. as needed. 3. Midodrine 10 mg p.o. t.i.d. LABS: WBC 8.17, hemoglobin 7, hematocrit 22.8, platelets 183. Sodium 133, potassium 3.1, chloride 97, CO2 26, BUN 26, creatinine 1.49. IMPRESSION 1. Acute renal failure, initiated on hemodialysis. 2. Methicillin-resistant Staphylococcus aureus bacteremia. 3. Extended-spectrum beta-lactamase Escherichia coli urinary tract infection. 4. Acute diastolic heart failure. 5. Pulmonary hypertension by echocardiogram with elevated estimated right ventricular systolic pressure. 6. Pulmonary edema. RECOMMENDATIONS: Continue current cardiac medications. Antibiotics per Infectious Disease. Volume management per Nephrology given initiation on hemodialysis. She would benefit from ultrafiltration as her blood pressure permits. Monitor patient on telemetry given her bacteremia. Thank you for this consult. We will continue to follow. Job#: [id number] MAXIMILIANO
[2018-07-27] MEDS ORDERED: HEPARIN SOD (PORCINE) 1000 UNIT/ML 30ML ONE (16:23)
[2018-07-27] MEDS ORDERED: LIDOCAINE HCL 2% LOCAL 20 ML VIAL ONE (16:23)
[2018-07-27] MEDS ORDERED: SODIUM CHLORIDE 0.9% 500ML 500 ML ONE (16:23)
--- NOTE | 2018-07-27 16:52 | Progress Note ---
DATE: July 27, 2018 RENAL PROGRESS NOTE SUBJECTIVE: Followed for acute kidney injury on chronic kidney disease stage 4. Patient's kidney function appears to be improving. She has low muscle mass; however, creatinine does not appear to be very high. She is no longer fluid-overloaded. Creatinine is 1.45, and she only had about 2 to 2-1/2 hours of dialysis yesterday and she told me she felt very weak after dialysis. I actually asked for AV fistula not to be placed. I also feel that she is starting to recover her kidney function to the point where she will likely be okay to come off dialysis for now and would not be end-stage renal disease at this point. No nausea, no vomiting, no shortness of breath. OBJECTIVE VITAL SIGNS: Have been noted. Blood pressure is 135/60, pulse 71, afebrile. LUNGS: Clear to auscultation bilaterally. CARDIOVASCULAR: S1 and S2. No gallop, rub, murmur. ABDOMEN: Soft. Positive bowel sounds. Nontender. No organomegaly. EXTREMITIES: No evidence of lower extremity edema. LABS: Sodium 132, potassium 3.1, chloride 97, bicarb 26, BUN 26, creatinine is 1.45. IMPRESSION AND PLAN 1. Acute kidney injury on chronic kidney disease stage 4, at baseline likely has CKD stage 4. I feel acute kidney injury component is starting to resolve, likely had developed ATN from the hypotension, possibly also from cardiorenal syndrome. With acute dialysis in the hospital, she has started to show some improvement. If her kidney function remains stable or is slightly better tomorrow or even if creatinine does go up slightly, I would watch her off dialysis since she is no longer fluid-overloaded and may indeed take out her dialysis catheter by Wednesday and she could probably be discharged. At this time will not place her in the outpatient setting and at this time would not place an AV fistula in her. 2. Hypertension. Blood pressure is much better. Will continue to monitor. 3. Anemia of chronic disease. Getting Epogen and IV iron as required. Thank you once again. Job#: [id number] EV
[2018-07-27] MEDS ORDERED: MIDODRINE HCL 5 MG TABLET PO SCH (17:00)
[2018-07-27] MEDS ORDERED: MIDAZOLAM HCL 2 MG/2 ML VIAL ONE (17:23)
[2018-07-27] MEDS ORDERED: FENTANYL CITRATE/PF 100MCG/2 ML INJ ONE (17:23)
[2018-07-27] MEDS: EPOETIN ALFA 10000 UNIT/ML VIAL SC SCH (18:31)
[2018-07-28] VITALS (8 sets, daily range): BP systolic 140–177; BP diastolic 65–83
[2018-07-28] MEDS: ACETAMINOPHEN 325 MG TAB PO PRN (02:50)
[2018-07-28] MEDS: LEVALBUTEROL HCL SOLN NEBU 0.63 MG/3 ML NEB INH SCH ×6 (03:00→23:05)
[2018-07-28] MEDS: ANORO ELLIPTA INHALATION INH SCH (04:43)
[2018-07-28 04:46] LABS: BASOPHILS % 0.3 % (0.0-1.0); EOSINOPHILS # (AUTO) 0.2 (0.0-0.4); EOSINOPHILS % 2.3 % (0.0-6.0); LYMPHOCYTES # (AUTO) 1.1 (1.0-3.2); LYMPHOCYTES % 13.5 % (18.0-39.1); MEAN CORPUSCULAR HEMOGLOBIN 27.9 pg (28-32); MEAN CORPUSCULAR HGB CONC 29.7 g/dL (31-35); MEAN CORPUSCULAR VOLUME 93.9 fL (81-99); MONOCYTES # (AUTO) 0.8 (0.2-0.8); MONOCYTES % 10.4 % (4.4-11.3); NEUTROPHILS # (AUTO) 5.8 (2.1-6.9); NEUTROPHILS % 72.1 % (38.7-80.0); PLATELET COUNT 186 x10e3/uL (140-360); RED BLOOD COUNT 2.44 x10e6/uL (3.6-5.1); RED CELL DISTRIBUTION WIDTH 14.6 % (11.7-14.4)
[2018-07-28 05:07] LABS: ANION GAP 15.2 mmol/L (8-16); CALCIUM 8.3 mg/dL (8.4-10.2); CREATININE, SERUM 1.38 mg/dL (0.57-1.11); MAGNESIUM 1.4 MG/DL (1.3-2.1); PHOSPHORUS 2.8 MG/DL (2.3-4.7); POTASSIUM 3.2 mmol/L (3.5-5.1)
[2018-07-28 05:43] LABS: HEMATOCRIT 22.9 % (34.2-44.1)
[2018-07-28 05:44] LABS: HEMOGLOBIN 6.8 g/dL (12.0-16.0)
[2018-07-28] MEDS: MEROPENEM 500MG 250 MG in SODIUM CHLORIDE 0.9% 50ML 50 ML IV SCH ×3 (06:21→22:00)
[2018-07-28] MEDS ORDERED: FUROSEMIDE INJ 10 MG/ML 2 ML VIAL IV PRN (07:00)
[2018-07-28] MEDS ORDERED: MAGNESIUM SULFATE 2GM/50ML 50 ML IV ONE (07:15)
[2018-07-28] MEDS ORDERED: SODIUM CHLORIDE 0.9% 250ML 250 ML IV ONE (07:30)
[2018-07-28] MEDS ORDERED: POTASSIUM CHLORIDE 20 MEQ TAB CR PO ONE (07:40)
--- NOTE | 2018-07-28 09:24 | Progress Note ---
DATE: July 28, 2018 RENAL PROGRESS NOTE SUBJECTIVE: Followed for acute kidney injury on chronic kidney disease, stage 3. The patient's kidney function continues to improve. Creatinine is down to 1.38. Did not have dialysis yesterday. Does not require dialysis at the present time. Likely stabilizing CKD, stage 3. Likely had acute tubular necrosis, which has started to improve now. The patient is not going to require any further outpatient dialysis. No nausea. No vomiting. No shortness of breath. OBJECTIVE VITAL SIGNS: Noted. Blood pressures have improved. In fact, they are on the higher side of 155/72, pulse 78 and afebrile. LUNGS: Clear to auscultation bilaterally. CARDIOVASCULAR: S1 and S2. No rub. ABDOMEN: Soft and nontender. EXTREMITIES: No edema. LABS: Potassium is 3.2, BUN 27, creatinine 1.38. Phosphorus is 2.8. Magnesium is 1.4. IMPRESSION AND PLAN 1. Acute kidney injury on chronic kidney disease, stage 3: The patient has recovered from acute tubular necrosis. No longer end-stage renal disease or even acute tubular necrosis state. Will have interventional radiology remove the tunneled dialysis catheter. From a renal standpoint, the patient will then be okay for discharge. She can follow up with me in my office in 2 weeks. 2. Hypertension: Blood pressure is much better. Will wean off the midodrine. 3. Hypokalemia: Replace orally. 4. Hypomagnesemia: Replace with intravenous mag sulfate. 5. Anemia of chronic disease: There has been a drop in her hemoglobin and hematocrit from 7 to 6.8 and 22.9. I have ordered 2 units of packed red blood cells with Lasix in between. From a renal standpoint, the low hemoglobin does not explain her chronic kidney disease. Recommend to evaluate for any other possible gastrointestinal losses prior to discharge. Job#: [id number] GERMAINE
[2018-07-28] MEDS: SODIUM BICARBONATE 650 MG TAB PO SCH ×2 (09:30→16:32)
[2018-07-28] MEDS: ASPIRIN 81 MG ENTERIC COATED PO SCH (09:30)
[2018-07-28] MEDS: PANTOPRAZOLE 40 MG 10ML VIAL IV SCH (09:30)
--- NOTE | 2018-07-28 12:20 | Progress Note ---
DATE: July 28, 2018 CARDIOLOGY PROGRESS NOTE SUBJECTIVE: No major events overnight. No chest pain. No shortness of breath. OBJECTIVE VITAL SIGNS: Temperature 97.4, pulse 78, respiratory rate 17, blood pressure 155/72, and satting 96% on 3 liters nasal cannula. GENERAL: Elderly white female, no acute distress. CARDIOVASCULAR: Regular rate and rhythm. No murmurs, rubs, or gallops. Palpable carotid pulses. Palpable radial pulses. Palpable femoral pulses. LUNGS: Bibasilar crackles. No respiratory distress. ABDOMEN: Soft, nontender, and nondistended. No masses. NEURO AND PSYCH: Alert and oriented to person, place, and time. CARDIAC MEDICATIONS: Reviewed. LABORATORY DATA: Reviewed. ASSESSMENT AND PLAN 1. Acute renal failure, on dialysis. 2. Methicillin-resistant Staphylococcus aureus bacteremia. 3. Extended spectrum beta-lactamase urinary tract infection. 4. Acute diastolic heart failure. 5. Pulmonary hypertension with elevated right-sided pressures. 6. Pulmonary edema. RECOMMENDATION: Continue current cardiac medications. Antibiotics per primary team and infectious disease. Volume management per nephrology as patient on hemodialysis. If remains persistently bacteremic, we will consider CLARK. May repeat echocardiogram in a limited fashion to check for endocarditis, though likely her bacteremia was related to her line, which has already been changed. Thank you for this consult. We will continue to follow. Job#: [id number] HARISH
[2018-07-28] MEDS ORDERED: VANCOMYCIN 750MG/NS 150ML IVPB 150 ML IV SCH (13:45)
[2018-07-28] MEDS ORDERED: SODIUM CHLORIDE 0.9% 250ML 250 ML ONE (14:39)
--- NOTE | 2018-07-28 16:41 | Diagnostic Imaging Report ---
Procedure: Removal of right internal jugular tunneled hemodialysis catheter electrogalvanizing machine operator: Tim Greenberg MD Medications: None. Estimated blood loss: None. Specimens: None Implants: None TECHNIQUE/FINDINGS: The patient was positioned supine in the stretcher. The skin overlying the right neck and chest was prepped in standard sterile fashion. The sutures securing the right internal jugular tunneled dialysis catheter were removed and the catheter was removed intact. Hemostasis was achieved after two minutes of manual compression. Sterile bandage was placed. The patient tolerated the procedure well without immediate complication. IMPRESSION: Removal of right IJ tunneled hemodialysis catheter as above. Signed by: Dr. Tim Greenberg MD on 07/28/2018 4:37 PM
--- NOTE | 2018-07-28 16:41 | Diagnostic Imaging Report ---
Procedure: Removal of right internal jugular tunneled hemodialysis catheter well flow operator: Tim Greenberg MD Medications: None. Estimated blood loss: None. Specimens: None Implants: None TECHNIQUE/FINDINGS: The patient was positioned supine in the stretcher. The skin overlying the right neck and chest was prepped in standard sterile fashion. The sutures securing the right internal jugular tunneled dialysis catheter were removed and the catheter was removed intact. Hemostasis was achieved after two minutes of manual compression. Sterile bandage was placed. The patient tolerated the procedure well without immediate complication. IMPRESSION: Removal of right IJ tunneled hemodialysis catheter as above. Signed by: Dr. Tim Greenberg MD on 07/28/2018 4:37 PM
--- NOTE | 2018-07-28 17:22 | Diagnostic Imaging Report ---
Modified barium swallow Reason for examination: \S\cough while drinking water \[id number] \S\1510 TECHNIQUE: Fluoroscopy provided. RADIATION DOSE: Fluoroscopy Time: 1:06 min Dose (Kerma) Area Product: 79 cGycm2 Air Kerma (AK) value has been reviewed. It is below the limits set by the Radiation Protocol Committee (RPC) committee. DISCUSSION: This examination was conducted in conjunction with speech pathologist. There appears to be one episode of tiny amount of aspiration. This is better seen on series 11. IMPRESSION: Possibly small amount of aspiration. Please see speech pathology report for detailed description and recommendations. Signed by: Dr. Henny Yuen M.D. on 07/28/2018 5:18 PM
[2018-07-29] VITALS (7 sets, daily range): BP systolic 121–182; BP diastolic 58–79
[2018-07-29] MEDS: LEVALBUTEROL HCL SOLN NEBU 0.63 MG/3 ML NEB INH SCH ×6 (03:02→23:10)
[2018-07-29] MEDS: ANORO ELLIPTA INHALATION INH SCH (04:51)
[2018-07-29 05:49] LABS: ANION GAP 14.7 mmol/L (8-16); CREATININE, SERUM 1.16 mg/dL (0.57-1.11); POTASSIUM 3.7 mmol/L (3.5-5.1)
[2018-07-29] MEDS: MEROPENEM 500MG 250 MG in SODIUM CHLORIDE 0.9% 50ML 50 ML IV SCH ×3 (06:22→22:00)
[2018-07-29 06:36] LABS: BASOPHILS # (AUTO) 0.1 (0.0-0.1); BASOPHILS % 0.9 % (0.0-1.0); EOSINOPHILS # (AUTO) 0.4 (0.0-0.4); EOSINOPHILS % 4.1 % (0.0-6.0); HEMATOCRIT 34.1 % (34.2-44.1); LYMPHOCYTES # (AUTO) 1.8 (1.0-3.2); MEAN CORPUSCULAR HEMOGLOBIN 28.6 pg (28-32); MEAN CORPUSCULAR HGB CONC 32.3 g/dL (31-35); MEAN CORPUSCULAR VOLUME 88.8 fL (81-99); MONOCYTES # (AUTO) 0.9 (0.2-0.8); MONOCYTES % 10.6 % (4.4-11.3); NEUTROPHILS # (AUTO) 5.1 (2.1-6.9); NEUTROPHILS % 59.1 % (38.7-80.0); PLATELET COUNT 221 x10e3/uL (140-360); RED BLOOD COUNT 3.84 x10e6/uL (3.6-5.1); RED CELL DISTRIBUTION WIDTH 15.4 % (11.7-14.4)
[2018-07-29] MEDS: ACETAMINOPHEN 325 MG TAB PO PRN ×2 (09:15→18:02)
[2018-07-29] MEDS: PANTOPRAZOLE 40 MG 10ML VIAL IV SCH (09:15)
[2018-07-29] MEDS: SODIUM BICARBONATE 650 MG TAB PO SCH ×2 (09:15→17:36)
[2018-07-29] MEDS: ASPIRIN 81 MG ENTERIC COATED PO SCH (09:15)
[2018-07-29] MEDS: METOPROLOL TARTRATE INJ 1 MG/ML VIAL IV PRN (09:15)
--- NOTE | 2018-07-29 09:54 | Progress Note ---
DATE: July 29, 2018 CARDIOLOGY PROGRESS NOTE SUBJECTIVE: The patient denies chest pain or shortness of breath. OBJECTIVE VITALS: Temperature 97.1 degrees, pulse 88, respiratory rate 24, blood pressure 163/77, oxygen saturation 93% on 3 L nasal cannula. GENERAL: Elderly woman frail and in no acute distress. Awake and alert. LUNGS: Clear to auscultation bilaterally. No wheezes or crackles. CARDIOVASCULAR: Normal rate. Regular rhythm. No murmur. Normal S1 and S2. ABDOMEN: Soft and nontender. EXTREMITIES: No edema. CARDIAC MEDICATIONS 1. Metoprolol tartrate 5 mg IV q.2 h. as needed. 2. Aspirin 81 mg p.o. daily. LABS: WBC 8.7, hemoglobin 11, hematocrit 34.1, and platelets 221,000. Sodium 139, potassium 3.7, chloride 98, CO2 30, BUN 26, creatinine 1.16. Telemetry is sinus tachycardia. IMPRESSION 1. Acute renal failure requiring hemodialysis. 2. Methicillin-resistant Staphylococcus aureus bacteremia. 3. Extended spectrum beta-lactamase Escherichia coli urinary tract infection. 4. Acute diastolic heart failure. 5. Pulmonary hypertension by echocardiogram with estimated right ventricular systolic pressure. 6. Pulmonary edema. RECOMMENDATIONS: Continue current cardiac medications. Antibiotics per infectious disease. Will repeat echocardiogram, as well as blood cultures. The patient no longer requires hemodialysis per nephrology. Monitor volume status closely. Thank you for this consult. We will continue to follow. Job#: [id number] GERMAINE
[2018-07-29] MEDS ORDERED: SODIUM CHLORIDE 0.9% 250ML 250 ML ONE (10:46)
[2018-07-29] MEDS: VANCOMYCIN 750MG/NS 150ML IVPB 150 ML IV SCH (11:00)
--- NOTE | 2018-07-29 15:15 | Progress Note ---
DATE: July 29, 2018 RENAL PROGRESS NOTE SUBJECTIVE: Followed for acute kidney injury on chronic kidney disease stage 3. Kidney function is improved and continues to improve at CKD stage 3 with a GFR of 46 mL per minute now. Creatinine is 1.2 now. Potassium 3.7. No nausea, no vomiting, no shortness of breath. OBJECTIVE VITAL SIGNS: Noted and are stable. Blood pressure is 138/65, pulse 78, afebrile. LUNGS: Clear to auscultation bilaterally. CARDIOVASCULAR: S1 and S2. No rub. ABDOMEN: Soft, nontender. EXTREMITIES: No edema. LABS: Creatinine is 1.2. IMPRESSION AND PLAN 1. Acute kidney injury on chronic kidney disease stage 3, improving acute kidney injury, off of dialysis. No further dialysis needed. Dialysis catheter has been taken out. 2. Hypertension. Blood pressure is stable. Continue to monitor closely. 3. Anemia. Transfused 2 units PRBCs. Hemoglobin is stable at 11. 4. From a renal standpoint, patient is stable for discharge. Patient can follow up with me in my office in 2 weeks after discharge. Thank you once again. Job#: [id number] EV
[2018-07-29] MEDS: EPOETIN ALFA 10000 UNIT/ML VIAL SC SCH (17:36)
[2018-07-30] VITALS (9 sets, daily range): BP systolic 120–185; BP diastolic 58–82
[2018-07-30] MEDS: LEVALBUTEROL HCL SOLN NEBU 0.63 MG/3 ML NEB INH SCH ×6 (03:07→22:55)
[2018-07-30] MEDS: ANORO ELLIPTA INHALATION INH SCH (06:00)
[2018-07-30] MEDS: MEROPENEM 500MG 250 MG in SODIUM CHLORIDE 0.9% 50ML 50 ML IV SCH ×3 (06:23→22:20)
[2018-07-30] MEDS: ASPIRIN 81 MG ENTERIC COATED PO SCH (09:30)
[2018-07-30] MEDS: VANCOMYCIN 750MG/NS 150ML IVPB 150 ML IV SCH (09:30)
[2018-07-30] MEDS: PANTOPRAZOLE 40 MG 10ML VIAL IV SCH (09:30)
[2018-07-30] MEDS: SODIUM BICARBONATE 650 MG TAB PO SCH ×2 (09:31→16:50)
[2018-07-30 11:28] LABS: BASOPHILS # (AUTO) 0.1 (0.0-0.1); BASOPHILS % 0.8 % (0.0-1.0); EOSINOPHILS # (AUTO) 0.2 (0.0-0.4); EOSINOPHILS % 2.6 % (0.0-6.0); HEMATOCRIT 39.2 % (34.2-44.1); HEMOGLOBIN 12.4 g/dL (12.0-16.0); LYMPHOCYTES # (AUTO) 1.8 (1.0-3.2); LYMPHOCYTES % 21.2 % (18.0-39.1); MEAN CORPUSCULAR HEMOGLOBIN 28.7 pg (28-32); MEAN CORPUSCULAR HGB CONC 31.6 g/dL (31-35); MEAN CORPUSCULAR VOLUME 90.7 fL (81-99); MONOCYTES # (AUTO) 0.7 (0.2-0.8); MONOCYTES % 7.6 % (4.4-11.3); NEUTROPHILS # (AUTO) 5.4 (2.1-6.9); NEUTROPHILS % 62.2 % (38.7-80.0); PLATELET COUNT 262 x10e3/uL (140-360); RED BLOOD COUNT 4.32 x10e6/uL (3.6-5.1)
--- NOTE | 2018-07-30 11:49 | Progress Note ---
DATE: CARDIOLOGY PROGRESS NOTE SUBJECTIVE: Patient is without any complaints this morning. She states that she feels well. Denies any shortness of breath, chest pain, or palpitations. OBJECTIVE VITAL SIGNS: Temperature 97.6, pulse 92, respiratory rate 18, blood pressure 121/58, oxygen saturation 99% on 3 L nasal cannula. GENERAL: Alert and oriented x3, resting comfortably in bed. Does not appear to be in any acute distress. LUNGS: Diminished breath sounds, anterior lower lobes, otherwise clear to auscultation. No wheezing. No rhonchi. CARDIOVASCULAR: Regular rate and rhythm. Diastolic murmur present. ABDOMEN: Soft, nontender. EXTREMITIES: Lower extremities, no edema. CARDIOVASCULAR MEDICATIONS: Aspirin 81 mg p.o. daily, metoprolol 5 mg q. 2 hours p.r.n. IV, midodrine 10 mg p.o. t.i.d. LABS: WBC 8.70, hemoglobin 11.0, hematocrit 34.1, platelets 221, sodium 139, potassium 3.7, BUN 26, creatinine 1.16, and calcium 9.0. TELEMETRY: Normal sinus rhythm. IMPRESSION 1. Acute renal failure, requiring hemodialysis in the past, also at this moment. 2. Methicillin-resistant Staphylococcus aureus bacteremia. 3. Extended-spectrum beta-lactamase Escherichia coli urinary tract infection. 4. Acute diastolic heart failure. 5. Pulmonary hypertension, by echo, with estimated right ventricular systolic pressure elevation. 6. Pulmonary edema. RECOMMENDATIONS: Continue with the above-list of cardiac medications. Antimicrobial therapy per infectious disease. We will repeat echocardiogram as well as blood culture in the future. Monitor volume status closely. Dictated By: Leticia Martell NP Job#: [id number] LPA
[2018-07-30 11:52] LABS: ANION GAP 16.9 mmol/L (8-16); CALCIUM 9.1 mg/dL (8.4-10.2); CREATININE, SERUM 0.97 mg/dL (0.57-1.11); POTASSIUM 3.9 mmol/L (3.5-5.1)
[2018-07-30] MEDS: ACETAMINOPHEN 325 MG TAB PO PRN (13:57)
[2018-07-31] VITALS (7 sets, daily range): BP systolic 138–163; BP diastolic 67–91
[2018-07-31] MEDS: ACETAMINOPHEN 325 MG TAB PO PRN (02:08)
[2018-07-31] MEDS: LEVALBUTEROL HCL SOLN NEBU 0.63 MG/3 ML NEB INH SCH ×6 (03:00→23:15)
[2018-07-31] MEDS: ANORO ELLIPTA INHALATION INH SCH (06:00)
[2018-07-31] MEDS: MEROPENEM 500MG 250 MG in SODIUM CHLORIDE 0.9% 50ML 50 ML IV SCH ×3 (06:45→22:14)
[2018-07-31] MEDS: VANCOMYCIN 750MG/NS 150ML IVPB 150 ML IV SCH (09:00)
[2018-07-31] MEDS: ASPIRIN 81 MG ENTERIC COATED PO SCH (09:16)
[2018-07-31] MEDS: SODIUM BICARBONATE 650 MG TAB PO SCH ×2 (09:16→16:18)
[2018-07-31] MEDS: PANTOPRAZOLE 40 MG 10ML VIAL IV SCH (09:16)
--- NOTE | 2018-07-31 14:58 | Progress Note ---
DATE: July 31, 2018 TIME OF SERVICE: 13:15 SUBJECTIVE: Overnight, no acute events. REVIEW OF SYSTEMS: Patient denies dizziness, chest pain, shortness of breath. Patient denies fever, chills, sweats, headache, leg pain, back pain, nausea, vomiting, diarrhea, or constipation. PHYSICAL EXAMINATION VITAL SIGNS: Temperature 97.4, pulse 76, respiratory rate 18, BP 147/73. GENERAL APPEARANCE: This is a very tired-appearing female, resting supine in bed. HEENT: Normocephalic. Oral mucosa moist and intact, mucosa pale. NECK: No JVD, trachea midline. CV: S1 and S2 auscultated without extracardiac sounds. Regular rate noted. RESPIRATORY: Bilateral breath sounds clear to auscultation without wheezes or crackles. ABDOMEN: Soft and nontender. EXTREMITIES: Without edema or leg pain. NEUROLOGIC: Alert and oriented x2 to 3, moves all extremities without gross focal defects upon examination. PSYCHIATRIC: Flat affect. LABS: WBC is 8.59. H and H 12.4 and 39.2 respectively. Platelet count 262. Sodium 141, potassium 3.9, chloride 99, gap 16.9, BUN 23, GFR 37, and creatinine 0.97. MEDICATIONS: Reviewed. ASSESSMENT AND PLAN: This is a 72-year-old with; 1. Acute kidney injury/end-stage renal disease. Previously being treated inhouse with dialysis. Per renal notes, improving acute kidney injury and is off dialysis without further HD needed. Dialysis catheter removed per IR. Cleared from renal perspective for followup outpatient in 2 weeks. 2. Electrolyte derangement. Monitor and replace as needed. 3. Normocytic anemia. Previously transfused 2 units of PRBC. We will continue to monitor. 4. Acute exacerbation of diastolic congestive heart failure. No fluid management as dialysis has been discontinued from that perspective. Patient euvolemic per I and O and signs/symptoms. 5. Pulmonary edema. 6. Pericardial effusion, small. Followup cardiology recommendations. Repeat echo, interpretation pending. 7. Chronic obstructive pulmonary disease. Supportive O2, nebs, and IV antibiotics. 8. Acute metabolic encephalopathy, resolving. 9. Coffee ground emesis. Continue to monitor counts. 10. Acute colitis. Continue IV antibiotics per ID consult. 11. Moderate anemia as above. 12. Prophylaxis. Protonix and SCDs. DISPOSITION: Discussed with RN and patient at bedside. Patient anticipate transfer to [place] pending, when possible. Continue to monitor volume status and repeat echo. Dictated By: Angelito Peter NP Job#: [id number] HARISH
--- NOTE | 2018-07-31 15:51 | Progress Note ---
DATE: CARDIOLOGY PROGRESS NOTE SUBJECTIVE: Patient is without any complaints. She states that she feels well. Denies any chest pain, palpitations, or shortness of breath. OBJECTIVE VITAL SIGNS: Temperature 97.4, pulse 81, respiratory rate 16, blood pressure 147/73, oxygen saturation 99% on 3 liters nasal cannula. GENERAL: Alert and oriented x 3, resting comfortably in bed. Does not appear to be in any acute distress. Family at the bedside. LUNGS: Diminished breath sounds anterior lower lobe. Otherwise, clear to auscultation. No wheezing or rhonchi. CARDIOVASCULAR: Regular rate and rhythm. Diastolic murmur present. ABDOMEN: Soft, nontender, rounded. EXTREMITIES: Lower extremities, no edema. CARDIOVASCULAR MEDICATIONS 1. Metoprolol 5 mg q. 2 hours p.r.n. for elevated heart rate. 2. Aspirin 81 mg p.o. daily. LABS: No new labs today. TELEMETRY: Sinus rhythm. IMPRESSION 1. Acute renal failure, requiring hemodialysis in the past, off dialysis at this point. 2. Methicillin-resistant Staphylococcus aureus bacteremia. 3. Extended-spectrum beta-lactamase Escherichia coli urinary tract infection. 4. Acute diastolic heart failure. 5. Pulmonary hypertension per echo with estimated right ventricular systolic pressure being elevated. 6. Pulmonary edema. RECOMMENDATIONS: Continue the above-listed cardiac medications. Antimicrobial therapy per infectious disease. We will repeat an echocardiogram prior to discharge. Monitor volume status closely. Dictated by: Leticia Martell NP Job#: [id number] LPA
--- NOTE | 2018-07-31 22:48 | Progress Note ---
DATE: July 26, 2018 TIME: 7 a.m. OVERNIGHT: No events. REVIEW OF SYSTEMS: Denies any dizziness, chest pain, shortness of breath. Denies any headache. PHYSICAL EXAMINATION: VITAL SIGNS: Reviewed. GENERAL APPEARANCE: Tired-appearing woman resting in bed. HEENT: Anicteric. CARDIOVASCULAR: Normal S1 and S2. LUNGS: Moderate breath sounds. ABDOMEN: Soft, nontender. EXTREMITIES: No edema. SKIN: Dry. PSYCHIATRIC: Flat affect. LABS: Reviewed. MEDICATIONS: Reviewed. ASSESSMENT: A 72-year-old woman. 1. Acute kidney injury/end-stage renal disease, started on dialysis. 2. Electrolyte derangement. 3. Normocytic anemia. 4. Acute exacerbation of diastolic congestive heart failure. 5. Pulmonary edema. 6. Pericardial effusion, small. 7. Chronic obstructive pulmonary disease. 8. Acute metabolic encephalopathy. 9. Coffee-ground emesis. 10. Moderate anemia. 11. Acute colitis. PLAN: 1. Continue supportive care. 2. Follow up nephrology recommendation. 3. Continue antibiotic care. 4. Follow up cultures. Job#: [id number]
--- NOTE | 2018-07-31 22:50 | Progress Note ---
DATE: July 27, 2018 TIME OF SERVICE: 7:15 a.m. Overnight, no events. REVIEW OF SYSTEMS: Denies any dizziness, chest pain, shortness of breath. Denies any headache, chest pain, leg pain. PHYSICAL EXAM VITAL SIGNS: Reviewed. GENERAL: A tired-appearing woman, resting in bed. HEENT: Anicteric. CARDIOVASCULAR: Normal S1, S2. LUNGS: Moderate breath sounds. ABDOMEN: Soft, nontender, nondistended. EXTREMITIES: No edema. SKIN: Dry. PSYCHIATRIC: Flat affect. LABS: Reviewed. MEDICATIONS: Reviewed. ASSESSMENT AND PLAN: A 72-year-old with 1. Acute kidney injury/end-stage renal disease. Started dialysis. 2. Extended spectrum beta-lactamase Escherichia coli infection. 3. Methicillin-resistant Staphylococcus aureus bacteremia. 4. Acute exacerbation of diastolic congestive heart failure. 5. Normocytic anemia. 6. Pulmonary edema. 7. Pericardial effusion, small. 8. Chronic obstructive pulmonary disease. 9. Acute metabolic encephalopathy. 10. Coffee-ground emesis. 11. Acute colitis. 12. Moderate anemia. PLAN 1. Continue antibiotics with meropenem and vancomycin. 2. Repeat cultures as needed. 3. Continue monitor nephrology tesfaye. Job#: [id number] CQ
--- NOTE | 2018-07-31 22:54 | Progress Note ---
DATE: July 29, 2018 TIME: 7:15 a.m. OVERNIGHT: No events. REVIEW OF SYSTEMS: Denies any dizziness, chest pain. PHYSICAL EXAMINATION: VITAL SIGNS: Reviewed. GENERAL APPEARANCE: Tired-appearing woman resting in bed. HEENT: Anicteric. CARDIOVASCULAR: Normal S1 and S2. LUNGS: Moderate breath sounds. ABDOMEN: Soft, nontender. EXTREMITIES: No edema. SKIN: Dry. PSYCHIATRIC: Flat affect. LABS: Reviewed. MEDICATIONS: Reviewed. ASSESSMENT: A 72-year-old woman. 1. Acute kidney injury/end-stage renal disease, started on dialysis. 2. Methicillin-resistant Staphylococcus aureus bacteremia. 3. Extended-spectrum beta-lactamase Escherichia coli infection. 4. Electrolyte derangement. 5. Normocytic anemia. 6. Acute exacerbation of diastolic congestive heart failure. 7. Pulmonary edema. 8. Pericardial effusion, small. 9. Chronic obstructive pulmonary disease. 10. Acute metabolic encephalopathy. 11. Coffee-ground emesis. 12. Acute colitis. PLAN: dialysis discharge planning. Job#: [id number]
--- NOTE | 2018-07-31 22:57 | Progress Note ---
DATE: July 30, 2018 TIME OF SERVICE: 7:15 a.m. Overnight, no events. REVIEW OF SYSTEMS: Denies any dizziness, chest pain. Denies any fever, chills, nausea, vomiting, diarrhea. PHYSICAL EXAM VITAL SIGNS: Reviewed. GENERAL: A tired-appearing woman, resting in bed. HEENT: Anicteric. CARDIOVASCULAR: Normal S1, S2. LUNGS: Moderate breath sounds. ABDOMEN: Soft, nontender, nondistended. EXTREMITIES: No edema. SKIN: Dry. PSYCHIATRIC: Flat affect. LABS: Reviewed. MEDICATIONS: Reviewed. ASSESSMENT AND PLAN: A 72-year-old with 1. Acute kidney injury/end-stage renal disease, initially started on dialysis. 2. Electrolyte derangement. 3. Methicillin-resistant Staphylococcus aureus bacteremia. 4. Extended spectrum beta-lactamase Escherichia coli infection. 5. Acute exacerbation of diastolic congestive heart failure. 6. Pulmonary edema. 7. Pericardial effusion, small. 8. Chronic obstructive pulmonary disease. 9. Acute metabolic encephalopathy. 10. Normocytic anemia, requiring blood transfusion. 11. Coffee-ground emesis. 12. Acute colitis. PLAN 1. Hemoglobin has improved. 2. Follow up blood cultures. 3. Will continue antibiotics. 4. Once repeat blood cultures available, patient can be transitioned to hospital. Job#: [id number] RICHAR
--- NOTE | 2018-07-31 22:58 | Progress Note ---
DATE: July 28, 2018 TIME: 7:15 a.m. SUBJECTIVE: Overnight, no events. REVIEW OF SYSTEMS: Denies any dizziness, chest pain, shortness of breath, fever, chills, nausea, vomiting, diarrhea. PHYSICAL EXAMINATION VITAL SIGNS: Reviewed. GENERAL: A tired appearing woman, resting in bed. HEENT: Anicteric. CARDIOVASCULAR: Normal S1, S2. LUNGS: Bilateral breath sounds. ABDOMEN: Soft, nontender, nondistended. EXTREMITIES: No edema. SKIN: Dry. PSYCHIATRIC: Flat affect. LABS: Reviewed. MEDICATIONS: Reviewed. ASSESSMENT: A 72-year-old with, 1. Acute kidney injury/end-stage renal disease, on dialysis. 2. Electrolyte derangement. 3. Extended spectrum beta-lactamase Escherichia coli infection. 4. Methicillin-resistant Staphylococcus aureus bacteremia. 5. Worsening anemia requiring blood transfusion. 6. Pericardial effusion, small. 7. Pulmonary edema. 8. Acute exacerbation of diastolic congestive heart failure. 9. Chronic obstructive pulmonary disease. 10. Coffee-ground emesis. 11. Acute colitis. 12. Moderate anemia. PLAN: 1. Give 2 units of packed red blood cells today. 2. Continue monitoring for renal function improvement. 3. Continue monitoring fluid levels. 4. Followup labs after blood transfusion. Job#: [id number] FRANKI
[2018-08-01] VITALS: BP 184/84
[2018-08-01] MEDS: ACETAMINOPHEN 325 MG TAB PO PRN (00:26)
[2018-08-01] MEDS: LABETALOL HCL 5 MG/ML 20ML VIAL IV PRN ×3 (02:04→13:08)
[2018-08-01] MEDS: LEVALBUTEROL HCL SOLN NEBU 0.63 MG/3 ML NEB INH SCH ×3 (03:22→11:00)
[2018-08-01 04:00] VITALS: BP 177/75
[2018-08-01 05:13] LABS: ANION GAP 14.1 mmol/L (8-16); BLOOD UREA NITROGEN 16 mg/dL (7-26); BUN/CREATININE RATIO 20 (6-25); CALCIUM 8.6 mg/dL (8.4-10.2); CARBON DIOXIDE 30 mmol/L (22-29); CHLORIDE 99 mmol/L (98-107); CREATININE, SERUM 0.82 mg/dL (0.57-1.11); EST GLOMERULAR FILTRATION RATE > 60 ML/MIN (60-); GLUCOSE 97 mg/dL (74-118); SODIUM 140 mmol/L (136-145)
[2018-08-01 05:16] LABS: POTASSIUM 3.1 mmol/L (3.5-5.1)
[2018-08-01] MEDS: MEROPENEM 500MG 250 MG in SODIUM CHLORIDE 0.9% 50ML 50 ML IV SCH (06:28)
[2018-08-01 08:00] VITALS: BP 176/85
[2018-08-01] MEDS: VANCOMYCIN 750MG/NS 150ML IVPB 150 ML IV SCH (09:00)
[2018-08-01] MEDS: SODIUM BICARBONATE 650 MG TAB PO SCH (09:30)
[2018-08-01] MEDS: PANTOPRAZOLE 40 MG 10ML VIAL IV SCH (09:30)
[2018-08-01] MEDS: ASPIRIN 81 MG ENTERIC COATED PO SCH (09:30)
--- NOTE | 2018-08-01 11:28 | Progress Note ---
DATE: August 01, 2018 CARDIOLOGY PROGRESS NOTE SUBJECTIVE: The patient denies chest pain or shortness of breath. OBJECTIVE VITALS: Temperature 97.9 degrees, pulse 77, respiratory rate 18, blood pressure 176/85, oxygen saturation 96% on 2 L nasal cannula. GENERAL: Elderly woman, chronically ill-appearing, awake and alert, in no acute distress. LUNGS: Clear to auscultation bilaterally. No wheezes or crackles. CARDIOVASCULAR: Normal rate. Regular rhythm. No murmur. Normal S1 and S2. ABDOMEN: Soft and nontender. EXTREMITIES: No edema. CARDIAC MEDICATIONS 1. Aspirin 81 mg p.o. daily. 2. Midodrine 10 mg p.o. t.i.d. LABS: Sodium 140, potassium 3.1, chloride 99, CO2 30, BUN 16, creatinine 0.82. TELEMETRY: Normal sinus rhythm. IMPRESSION 1. Acute renal failure requiring hemodialysis. 2. Methicillin-resistant Staphylococcus aureus bacteremia. 3. Extended spectrum beta-lactamase Escherichia coli urinary tract infection. 4. Acute diastolic heart failure. 5. Pulmonary hypertension by echocardiogram with elevated estimated right ventricular systolic pressure. 6. Pulmonary edema. RECOMMENDATIONS: Continue current cardiac medications. Antibiotics per infectious disease. Repeat blood cultures without growth thus far. Patient was discussed with infectious disease. Bacteremia most likely related to hemodialysis catheter, which has since been removed. Repeat echocardiogram without any vegetations reported. No further dialysis is needed per nephrology at this time. Monitor volume status closely. She may need scheduled diuretics as an outpatient. Thank you for this consult. We will continue to follow. Job#: [id number]
[2018-08-01] MEDS ORDERED: POTASSIUM CHLORIDE 20 MEQ TAB CR PO STA (11:48)
[2018-08-01 12:00] VITALS: BP 188/79
[2018-08-01] MEDS ORDERED: POTASSIUM CHLORIDE 20 MEQ TAB CR PO ONE (12:30)
[2018-08-01 12:44] VITALS: BP 176/85
[2018-08-01 13:45] VITALS: BP 148/66
--- NOTE | 2018-08-02 00:08 | Discharge Summary ---
PRINCIPAL DIAGNOSES 1. Acute kidney injury, requiring temporary dialysis. 2. Electrolyte derangement. 3. Methicillin-resistant Staphylococcus aureus bacteremia. 4. Extended spectrum beta-lactamase Escherichia coli urinary tract infection. 5. Pulmonary edema. 6. Pericardial effusion. 7. Chronic obstructive pulmonary disease. 8. Acute metabolic encephalopathy. 9. Normocytic anemia, requiring blood transfusion. 10. Coffee-grounds emesis. 11. Acute colitis. SECONDARY DIAGNOSIS: Normocytic anemia. CHIEF COMPLAINT: Confusion and reduced urination. HISTORY OF PRESENT ILLNESS: This is a 72-year-old woman with confusion and reduced urination. Please refer to the H and P for further details. HOSPITAL COURSE: Patient was found to have acute kidney injury, required temporary dialysis; had electrolyte derangement, MRSA bacteremia, and ESBL E. coli urinary tract infection. Treated on vancomycin and meropenem. Patient improved, urination improved and dialysis was discontinued. Repeat blood cultures have remained negative. Patient is doing better. She had acute colitis, coffee-grounds emesis and worsening anemia, requiring blood transfusion. She had COPD and pericardial effusion which was small. She had pulmonary edema. Does have COPD. Patient is doing better and now being transitioned to skilled facility for further recovery. DISCHARGE MEDICATIONS: Per electronic medical record. FOLLOWUP 1. Primary care doctor in 1 week. 2. Follow up with nephrology in 2 weeks. REA HERNANDEZ MD Job#: [id number]
--- NOTE | 2018-08-02 07:23 | Diagnostic Imaging Report ---
Date and Time: 07/27/2018 at 1740 Procedure: Left internal jugular central venous catheter placement event av operator: Dr. 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 Blood pressure was monitored at 5 minute intervals. Additional Medications: Lidocaine 1% for local anesthesia Fluoroscopy time: 0.9 minutes Dose-area Product: 43.5 cGycm2. Contrast used: 0 Estimated blood loss: Minimal Blood products administered: None Specimens: None Implants: 7 Upper Sorbian 20 cm triple-lumen central venous catheter DISCUSSION: Informed consent was obtained and documented in the medical record. The patient was placed in the supine position on the angiographic table. Pulmonary sonographic evaluation confirmed patency of the left internal jugular vein evidenced by compressibility. The left neck was prepped and draped in the standard sterile fashion. 1% lidocaine was infiltrated into the skin and subcutaneous tissues for local anesthesia. Then under sonographic guidance an 18-gauge vascular needle was used to access the left internal jugular vein. A 0.0 3 5-in. wire was advanced through the needle and into the inferior vena cava under fluoroscopic guidance. Needle was removed and the tract was dilated. Then a 7 Upper Sor[place] 20 cm triple-lumen central venous catheter was advanced over the wire to full depth. The needle was removed and the catheter tip was positioned at the superior cavoatrial junction. Each lumen showed adequate bidirectional flow and was flushed with sterile saline. The catheter was secured to the skin with monofilament nylon suture and a sterile dressing was applied. FINDINGS: Patent left internal jugular vein. IMPRESSION: Successful placement of a 7 Upper Sor[place] 20 cm triple-lumen central venous catheter by a left internal jugular approach under sonographic and fluoroscopic guidance. Signed by: Dr. Kyaw Casarez M.D. on 08/02/2018 7:19 AM
--- NOTE | 2018-08-05 10:25 | Diagnostic Imaging Report ---
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 Blood pressure was monitored at 5 minute intervals. Additional Medications: Lidocaine 1% for local anesthesia Fluoroscopy time: 0.9 minutes Dose-area Product: 43.5 cGycm2. Contrast used: 0 Estimated blood loss: Minimal Blood products administered: None Specimens: None Implants: 7 Romansh 20 cm triple-lumen central venous catheter DISCUSSION: Informed consent was obtained and documented in the medical record. The patient was placed in the supine position on the angiographic table. Pulmonary sonographic evaluation confirmed patency of the left internal jugular vein evidenced by compressibility. The left neck was prepped and draped in the standard sterile fashion. 1% lidocaine was infiltrated into the skin and subcutaneous tissues for local anesthesia. Then under sonographic guidance an 18-gauge vascular needle was used to access the left internal jugular vein. A 0.0 3 5-in. wire was advanced through the needle and into the inferior vena cava under fluoroscopic guidance. Needle was removed and the tract was dilated. Then a 7 Romansh 20 cm triple-lumen central venous catheter was advanced over the wire to full depth. The needle was removed and the catheter tip was positioned at the superior cavoatrial junction. Each lumen showed adequate bidirectional flow and was flushed with sterile saline. The catheter was secured to the skin with monofilament nylon suture and a sterile dressing was applied. FINDINGS: Patent left internal jugular vein. IMPRESSION: Successful placement of a 7 Romansh 20 cm triple-lumen central venous catheter by a left internal jugular approach under sonographic and fluoroscopic guidance. Signed by: Dr. Kyaw Casarez M.D. on 08/02/2018 7:19 AM
--- NOTE | 2018-08-05 11:10 | Diagnostic Imaging Report ---
PROCEDURE:US RETROPERITONEAL ( KIDNEY ). COMPARISON:None. INDICATIONS:ARF/TED TECHNIQUE: [place]-scale and color sonographic images of the bilateral kidneys and bladder where obtained in transverse and longitudinal planes. FINDINGS: RIGHT KIDNEY: Measures 8.9 cm, cortex 1.5 cm Cysts: None. Solid masses: None. Stones: None. Hydronephrosis: None. Echogenicity: Mildly increased echogenicity is noted. LEFT KIDNEY: Measures 9.5 cm, cortex 1.6 cm Cysts: None. Solid masses: None. Stones: None. Hydronephrosis: None. Echogenicity: Mildly increased echogenicity is noted. Bladder: Luna catheter is present in a decompressed bladder. CONCLUSION: Mildly increased echogenicity of bilateral kidneys, which may reflect underlying renal dysfunction. No evidence of hydronephrosis. Dictated by: SIMON GUERRERO M.D. on 08/05/2018 at 11:17 Electronically approved by: SIMON GUERRERO M.D. on 08/05/2018 at 11:17
== END 2018-08-01 14:05 | DRG 673 ==
LOC: ER 17:15 → ERHOLD 20:16 → IMCU 22:58 → MED/SURG2 07-20 15:33
PROVIDERS: ADMIT Internal Medicine; ATTEND Internal Medicine
PROC: 02HV33Z Insertion of Infusion Device into Superior Vena Cava, Percutaneous Approach (ICD-10-PCS; principal; 2018-07-18)
PROC: B548ZZA Ultrasonography of Superior Vena Cava, Guidance (ICD-10-PCS; 2018-07-18)
PROC: 5A1D70Z Performance of Urinary Filtration, Intermittent, Less than 6 Hours Per Day (ICD-10-PCS; 2018-07-18)
PROC: 5A1D70Z Performance of Urinary Filtration, Intermittent, Less than 6 Hours Per Day (ICD-10-PCS; 2018-07-19)
PROC: 5A1D70Z Performance of Urinary Filtration, Intermittent, Less than 6 Hours Per Day (ICD-10-PCS; 2018-07-21)
PROC: 0JH63XZ Insertion of Tunneled Vascular Access Device into Chest Subcutaneous Tissue and Fascia, Percutaneous Approach (ICD-10-PCS; 2018-07-22)
PROC: 02HV33Z Insertion of Infusion Device into Superior Vena Cava, Percutaneous Approach (ICD-10-PCS; 2018-07-22)
PROC: B548ZZA Ultrasonography of Superior Vena Cava, Guidance (ICD-10-PCS; 2018-07-22)
PROC: 5A1D70Z Performance of Urinary Filtration, Intermittent, Less than 6 Hours Per Day (ICD-10-PCS; 2018-07-23)
PROC: 5A1D70Z Performance of Urinary Filtration, Intermittent, Less than 6 Hours Per Day (ICD-10-PCS; 2018-07-26)
PROC: 02HV33Z Insertion of Infusion Device into Superior Vena Cava, Percutaneous Approach (ICD-10-PCS; 2018-07-27)
PROC: B548ZZA Ultrasonography of Superior Vena Cava, Guidance (ICD-10-PCS; 2018-07-27)
PROC: 02PY33Z Removal of Infusion Device from Great Vessel, Percutaneous Approach (ICD-10-PCS; 2018-07-28)
PROC: 30233N1 Transfusion of Nonautologous Red Blood Cells into Peripheral Vein, Percutaneous Approach (ICD-10-PCS; 2018-07-28)
DX: N17.0 Acute kidney failure with tubular necrosis (principal); G93.41 Metabolic encephalopathy; I50.31 Acute diastolic (congestive) heart failure; N39.0 Urinary tract infection, site not specified; T82.7XXA Infection and inflammatory reaction due to other cardiac and vascular devices, implants and grafts, initial encounter; E87.2 Acidosis; I13.0 Hypertensive heart and chronic kidney disease with heart failure and stage 1 through stage 4 chronic kidney disease, or unspecified chronic kidney disease; E87.5 Hyperkalemia; E83.51 Hypocalcemia; D64.9 Anemia, unspecified; J44.9 Chronic obstructive pulmonary disease, unspecified; I50.9 Heart failure, unspecified; E11.22 Type 2 diabetes mellitus with diabetic chronic kidney disease; B95.62 Methicillin resistant Staphylococcus aureus infection as the cause of diseases classified elsewhere; B96.20 Unspecified Escherichia coli [E. coli] as the cause of diseases classified elsewhere; K21.9 Gastro-esophageal reflux disease without esophagitis; R11.10 Vomiting, unspecified; K52.9 Noninfective gastroenteritis and colitis, unspecified; I27.20 Pulmonary hypertension, unspecified; D63.8 Anemia in other chronic diseases classified elsewhere; E83.42 Hypomagnesemia; Z16.12 Extended spectrum beta lactamase (ESBL) resistance; N18.4 Chronic kidney disease, stage 4 (severe)
CPT/HCPCS: 36415; 36430; 36556; 36565; 36589; 36600; 51700; 70450; 71045; 74018; 74176; 74230; 74470; 76770; 76937; 77001; 80048; 80053; 80202; 80307; 80320; 80329; 81001; 82550; 82553; 82693; 82805; 82948; 83605; 83735; 83880; 84100; 84484; 85014; 85018; 85025; 85610; 85730; 86704; 86706; 86850; 86900; 86920; 87040; 87071; 87086; 87186; 87205; 87340; 90732; 90962; 93005; 93306; 94640; 97139; 99284; C1750; C1751; C1769; J1170; J1644; J1940; J2001; J2150; J2185; J2250; J2405; J3370; J7030; J7040; J7050; J7070; P9016; Q4081